=== PATIENT | female | born 1950 | race Caucasian/White ===

== ENCOUNTER → 2018-01-29 10:49 | Outpatient (CLI) | payer MEDICARE, OTHER, SELFPAY ==
--- NOTE | 2018-01-29 10:51 | US_ITS ---
STUDY: THYROID ULTRASOUND REASON FOR EXAM: Female, 68 years old. Follow up nodules TECHNIQUE: Transverse and longitudinal ultrasound evaluation of the thyroid was performed with real-time and static valenzuela-scale imaging. COMPARISON: September 13, 2016 FINDINGS: RIGHT LOBE: The right lobe of the thyroid gland measures 4.8 x 1.6 x 1.4 cm. There is a heterogeneous echotexture. There are numerous small hypoechoic and cystic masses in the right lobe of the thyroid. A cystic nodule in the midpole measures 4.2 x 3.4 x 3.9 mm. This nodule previously measured 3 mm. LEFT LOBE: The left lobe of the thyroid gland measures 4.4 x 1.4 x 1.7 cm. There is a heterogeneous echotexture. There are small hypoechoic masses in the left lobe. There is a dominant heterogeneous cystic mass in the upper pole measuring 16.2 x 7.8 x 11.2 mm. This previously measured 12.4 x 6.3 x 7.4 mm. A hyperechoic nodule in the lower pole measures 4.4 x 3.6 x 6.2 mm and previously measured 3.4 x 3.6 x 6.1 mm. ISTHMUS: The isthmus measures 3.0 mm. The regional lymph nodes are unremarkable. US/Thyroid IMPRESSION: There are cystic nodules again seen in both lobes of the thyroid. The largest is seen in the upper pole of the left lobe measuring 16 mm in largest diameter. Apparently this has been previously sampled. There are no significant new findings. Electronically Signed: Pat Townsend MD at 22:46 EDT Tel Direct: [phone], Service support ,
== END ==
PROVIDERS: Family Provider Family Medicine; PCP Family Medicine; Visit Provider Otolaryngology
DX: E04.1 Nontoxic single thyroid nodule (principal)
CPT/HCPCS: 76536

== ENCOUNTER → 2018-02-10 14:54 | Outpatient (CLI) | payer MEDICARE, OTHER, SELFPAY ==
--- NOTE | 2018-02-10 14:54 | DT_ITS ---
This patient was seen during an EMR downtime February 10, 2018 - February 17, 2018. This patient may have a combination of paper and electronic documentation or all paper documentation. All documentation is viewable within the e-chart portion of [employer] for each patient visit.
[2018-02-16 02:56] LABS: Hematocrit 40.3 % (37-47); Hemoglobin 13.1 g/dl (12.0-15.0); Mean Corp Hgb Conc 32.5 g/gl (32-36); Mean Corpuscular Hgb 28.9 pg (27.0-32.0); RBC Distribution Width CV 13.5 % (11.6-14.6); Red Blood Count 4.53 M/mm3 (4.2-5.4); White Blood Count 6.5 K/mm3 (4.4-11.0)
[2018-02-16 02:57] LABS: Absolute Lymphocyte Count 1.88 X10^3/ul (0.83-4.51); Absolute Neutrophil Count 3.8 X10^3/uL (2.0-7.7); Basophil# 0.03 X10^3/uL; Basophil% 0.5 % (0-1); Eosinophil# 0.13 X10^3/uL; Lymphocyte # 1.88 X10^3/ul (4.0); Mean Platelet Vol. 10.3 fl (6.2-12.0); Monocyte# 0.61 X10^3/uL; Monocyte% 9.4 % (0-10); Neutrophil # 3.83 X10^3/uL (2.7-7.7); Neutrophil % 58.9 % (47-70); POSITIVE COUNT NO; POSITIVE DIFFERENTIAL NO; POSITIVE MORPHOLOGY NO; Platelet Count 341 K/mm3 (150-450); RBC Distribution Width SD 43.7 fl (35.1-43.9)
[2018-02-16 03:22] LABS: BUN 13 mg/dL (7-18); Glucose 79 mg/dL (74-106)
[2018-02-16 03:23] LABS: ALB/GLOB Ratio 1.2 RATIO (0.9-2.4); AST(SGOT) 30 U/L (15-37); Alanine Aminotransfer ALT/SGPT 25 U/L (13-56); Albumin, Serum 3.8 g/dL (3.2-5.0); Alkaline Phosphatase 79 U/L (45-117); Anion Gap 9 (5-15); BUN/Creat Ratio 14.6 RATIO (10-20); Calcium,Total 8.9 mg/dL (8.5-10.1); Chloride 107 mmol/L (98-107); Cholesterol 189 mg/dL (200); Creatinine, Serum 0.89 mg/dL (0.55-1.02); EST Glomerular Filtration Rate 67 mL/min (>60); Est Glom Filt Rate - Afr Amer 81 mL/min (>60); Globulin 3.1 g/dL (2.2-4.2); High Density Lipoprotein 60 mg/dL; Protein, Total 6.9 g/dL (6.4-8.2); Sodium Level 142 mmol/L (136-145); Triglycerides 74 mg/dL; Very Low Density Lipoprotein 15 mg/dL (5-40)
[2018-02-16 19:08] LABS: T4 Free Direct 1.18 ng/dL (0.76-1.46); Thyroid Stim Hormone (TSH) 1.59 uIU/mL (0.358-3.74)
== END ==
PROVIDERS: Family Provider Family Medicine; PCP Family Medicine; Visit Provider Family Medicine
DX: I10 Essential (primary) hypertension (principal); E04.2 Nontoxic multinodular goiter; R53.83 Other fatigue; E78.4 Other hyperlipidemia
CPT/HCPCS: 36415; 80053; 80061; 84439; 84443; 84480; 85025

== ENCOUNTER → 2018-02-17 14:36 | Outpatient (CLI) | payer MEDICARE, OTHER, SELFPAY ==
--- NOTE | 2018-02-17 14:36 | DT_ITS ---
This patient was seen during an EMR downtime February 10, 2018 - February 17, 2018. This patient may have a combination of paper and electronic documentation or all paper documentation. All documentation is viewable within the e-chart portion of [employer] for each patient visit.
[2018-02-24 20:09] LABS: Lyme IgG P18 Ab Absent (.); Lyme IgG P23 Ab Absent (.); Lyme IgG P28 Ab Absent (.); Lyme IgG P30 Ab Absent (.); Lyme IgG P39 Ab Absent (.); Lyme IgG P41 Ab Present (.); Lyme IgG P45 Ab Absent (.); Lyme IgG P58 Ab Absent (.); Lyme IgG P66 Ab Absent (.); Lyme IgG P93 Ab Absent (.); Lyme IgM P23 Ab Absent (.); Lyme IgM P39 Ab Absent (.); Lyme IgM P41 Ab Absent (.)
[2018-02-25 15:52] LABS: Lyme IgG WB Interpretation Negative (.); Lyme IgM WB Interpretation Negative (.)
== END ==
PROVIDERS: Family Provider Family Medicine; PCP Family Medicine; Visit Provider Family Medicine
DX: A69.20 Lyme disease, unspecified (principal); W57.XXXA Bitten or stung by nonvenomous insect and other nonvenomous arthropods, initial encounter
CPT/HCPCS: 36415; 86617

== ENCOUNTER → 2018-03-06 14:49 | Outpatient (CLI) | payer MEDICARE, OTHER, SELFPAY ==
--- NOTE | 2018-03-06 14:52 | RAD_ITS ---
STUDY: X-RAY CHEST REASON FOR EXAM: Female, 68 years old. Cough, wheeze, shortness of breath TECHNIQUE: PA and lateral views of the chest. COMPARISON: 06/16/2014 FINDINGS: The lungs are clear and expanded. There is no demonstrated pleural abnormality. Normal size heart. Normal mediastinum and freedom. Normal visualized pulmonary arteries. There is atherosclerotic tortuosity of the aortic arch and descending thoracic aorta. There are diffuse degenerative changes of the visualized thoracic spine. Normal visualized ribs, clavicles, and shoulders. There is no demonstrated abnormality of the visualized soft tissue structures of the upper abdomen. RAD/Chest PA and Lateral IMPRESSION: Degenerative changes, as described above. No demonstrated acute cardiopulmonary process. Electronically Signed: Black Fontana DO at 15:36 EDT Tel , Service support ,
== END ==
PROVIDERS: Family Provider Family Medicine; PCP Family Medicine; Visit Provider Family Medicine
DX: R05 Cough (principal); R06.2 Wheezing
CPT/HCPCS: 71046

== ENCOUNTER → 2018-03-24 12:39 | Outpatient (CLI) | payer MEDICARE, OTHER, SELFPAY ==
--- NOTE | 2018-03-24 12:41 | BI_ITS ---
MAMMOGRAPHY - BILATERAL SCREENING REASON FOR EXAM: Female, 68 years old. Routine annual screening examination. PERTINENT HISTORY: Non-contributory. TECHNIQUE: Digital bilateral breast bri (3D mammographic acquisition) in the CC and MLO projections. 2-D mediolateral oblique (MLO) and craniocaudad (CC) views of both breasts were obtained. CAD: Full Field Digital Mammography with Computer Added Detection was performed. COMPARISON: Comparison is made with prior study dated January 25, 2017 and November 25, 2015. FINDINGS: Breast Composition: The breasts are almost entirely fatty. There are no dominant masses or suspicious calcifications. Stable benign-appearing bilateral axillary lymph nodes. No other significant abnormalities are identified. There has been no significant change since the prior study. BI/SCREENING MAMM (CAD), BILAT IMPRESSION: Stable bilateral screening mammogram. Yearly follow-up mammogram recommended. (A) ASSESSMENT CATEGORY: BIRADS Category 2: Benign. A letter regarding these results will be sent to the patient by the facility within 30 days. Approximately 10% of breast cancers are not detected by mammography. A normal mammogram should not delay biopsy of a clinically suspicious abnormality. [id number] Electronically Signed: Arian Husseni MD at 13:36 EDT Tel [phone], Service support ,
== END ==
PROVIDERS: Family Provider Family Medicine; PCP Family Medicine; Visit Provider Family Medicine
DX: Z12.31 Encounter for screening mammogram for malignant neoplasm of breast (principal)
CPT/HCPCS: 77063; 77067

== ENCOUNTER → 2018-03-31 12:04 | Outpatient (CLI) | payer MEDICARE, OTHER, SELFPAY ==
[2018-03-31 14:02] LABS: AST(SGOT) 17 U/L (15-37); Alanine Aminotransfer ALT/SGPT 27 U/L (13-56); Albumin, Serum 3.6 g/dL (3.2-5.0); Alkaline Phosphatase 75 U/L (45-117); Bilirubin, Direct 0.09 mg/dL (0.00-0.30); Cholesterol 195 mg/dL (200); Globulin 3.3 g/dL (2.2-4.2); High Density Lipoprotein 52 mg/dL; Protein, Total 6.9 g/dL (6.4-8.2); Triglycerides 71 mg/dL; Very Low Density Lipoprotein 14 mg/dL (5-40)
== END ==
PROVIDERS: Family Provider Family Medicine; PCP Family Medicine; Visit Provider Internal Medicine Cardiovascular Disease
DX: E78.5 Hyperlipidemia, unspecified (principal); R00.2 Palpitations
CPT/HCPCS: 36415; 80061; 80076

== ENCOUNTER → 2018-04-08 09:50 | Outpatient (CLI) | payer MEDICARE, OTHER, SELFPAY ==
--- NOTE | 2018-04-08 09:52 | ECHOD_ITS ---
Reason For Study: Palpitations Procedure This was a 2D Doppler, Color Flow transthoracic echocardiogram. Exam performed in department. Left Ventricle Normal size and thickness. The estimated ejection fraction is 65 %. Normal diastology for age. No regional wall motion abnormalities noted. Right Ventricle Mildly dilated right ventricle. Normal systolic function. Atria Normal left atrium. The right atrium is mildly enlarged. Normal atrial septum. Mitral Valve The mitral valve is structurally normal. No prolapse or stenosis seen. Tricuspid Valve Normal tricuspid valve. Trivial tricuspid valve insufficiency. Right ventricular systolic pressure estimated to be 34 mmHg. Aortic Valve Trisinus/trileaflet aortic valve. Mild diffuse aortic valve thickening. Mild (1+) aortic valve insufficiency. Pulmonic Valve Normal pulmonic valve. Great Vessels Normal aortic root. Normal arch. Normal inferior vena cava. Inferior vena cava collapse with sniff. Pericardium/Pleural No pericardial effusion. MMode/2D Measurements & Calculations LVIDd: 4.2 cm IVSd: 1.0 cm LVOT diam: 2.0 cm LVIDs: 2.2 cm LVPWd: 1.1 cm LVOT area: 3.0 cm2 RVDd: 4.2 cm FS: 47.4 % Ao root diam: 3.3 cm LAV(MOD-bp): 48.3 ml LA A4 area: 12.8 cm2 LA dimension: 4.1 cm LAV(MOD-bp) Indexed: 23.2 ml/m2 LAV(MOD-sp2): 81.1 ml LAV(MOD-sp4): 26.7 ml RA A4 area: 21.4 cm2 Time Measurements MV dec time: 0.18 sec Doppler Measurements & Calculations MV E max victor manuel: 69.7 cm/sec Lat Peak E' Victor Manuel: 9.8 cm/sec Med Peak E' Victor Manuel: 5.9 cm/sec MV A max victor manuel: 76.7 cm/sec E/E' lat: 7.1 E/E' med: 11.7 MV E/A: 0.91 MV V2 max: 92.7 cm/sec MV P1/2t max victor manuel: 79.8 cm/sec Ao V2 max: 115.2 cm/sec MV max P.4 mmHg MV P1/2t: 66.1 msec Ao max P.3 mmHg MV V2 mean: 42.4 cm/sec MV dec slope: 353.6 cm/sec2 Ao V2 mean: 68.8 cm/sec MV mean P.89 mmHg MVA(P1/2t): 3.3 cm2 Ao mean P.2 mmHg MV V2 VTI: 26.8 cm Ao V2 VTI: 25.3 cm MVA(VTI): 2.2 cm2 JASMYNE(I,D): 2.3 cm2 JASMYNE(V,D): 2.3 cm2 AI max victor manuel: 406.9 cm/sec LV V1 max: 88.3 cm/sec SV(LVOT): 59.4 ml AI max P.2 mmHg LV V1 max P.1 mmHg AI dec slope: 201.6 cm/sec2 LV V1 mean P.2 mmHg AI P1/2t: 591.2 msec LV V1 mean: 49.5 cm/sec LV V1 VTI: 19.8 cm PA V2 max: 110.7 cm/sec Interpretation Summary The estimated ejection fraction is 65 %. Normal diastology for age. Mildly dilated right ventricle. The right atrium is mildly enlarged. Trivial tricuspid valve insufficiency. Right ventricular systolic pressure estimated to be 34 mmHg. Mild (1+) aortic valve insufficiency. There is no comparison study available. Ordering Physician: Jefferson Chen Referring Physician: Jefferson Chen Performed By: Abdoul Rankin RCS
== END ==
PROVIDERS: Family Provider Family Medicine; PCP Family Medicine; Visit Provider Internal Medicine Cardiovascular Disease
DX: R06.09 Other forms of dyspnea (principal)
CPT/HCPCS: 93306

== ENCOUNTER → 2018-04-10 09:30 | Outpatient (CLI) | payer MEDICARE, OTHER, SELFPAY ==
--- NOTE | 2018-04-10 09:32 | STE_ITS ---
Reason For Study: Palpitations, SOB Stress Results Protocol: Oumar Protocol Maximum Predicted HR: 152 bpm Target HR: 129 bpm% Max imum Predicted HR: 79 % DurationHeart Rate Stage (mm:ss) (bpm) BPCom ment Baseline 64 140/82 No Chest Pain Oumar Protocol Stage I 3:00 11 1 154/80No Chest Pain; Mild Dyspnea Oumar Protocol Stage II 1:01 12 0 / No Chest Pain; Moderate Dyspnea Recovery 93 132/88 No Chest Pain; No Dyspnea Stress Duration: 4:01 mm:ss Maximum Stress HR: 120 bpmM ETS: 7 Baseline Echocardiogram Findings The estimated ejection fraction is 65 %. Stress Echo Wall motion Data Resting WMIntermediate WMStress WM Resting Wall Motion Wall Motion Stress No regional wall motion No regional wall motion abnormalities noted. abnormalities noted. EKG Data The baseline ECG demonstrates normal sinus rhythm with at rate of _ beats per minute. The patient exercised according to the regular Oumar protocol for a total duration of 4:01. The maximum heart rate attained was 123 beats per minute. This was 80% of maximum predicted heart rate. The patient exercised into stage 2 of the Oumar protocol. During stress, there were no ST or T wave changes noted to suggest ischemia. No clinical angina was noted. No arrhythmias noted. Interpretation Summary The estimated ejection fraction is 65 %. Normal, submaximal treadmill echocardiogram. Negative for ischemia by EKG and echocardiographic criteria. Below average exercise capacity for age. No anginal symptoms noted. No arrhythmias noted. Appropriate blood pressure response to exercise. Final LVEF is 75%. Although patient did not reach target heart rate, her rate pressure product was adequate to evaluate for ischemia. Ordering Physician: Jefferson Chen Referring Physician: Jefferson Chen Performed By: Marcella Walker RDCS
== END ==
PROVIDERS: Family Provider Family Medicine; PCP Family Medicine; Visit Provider Internal Medicine Cardiovascular Disease
DX: R00.2 Palpitations (principal)
CPT/HCPCS: 93017; 93350

== ENCOUNTER → 2018-10-15 13:38 | Outpatient (CLI) | payer MEDICARE, OTHER, SELFPAY ==
[2018-10-10 11:27] VITALS: BMI 32.5
--- NOTE | 2018-10-15 13:44 | RAD_ITS ---
HISTORY: LOW BACK PAIN. NO INJURY COMPARISON: None FINDINGS: XR Spine Lumbar 4 Views: Generalized bony demineralization consistent with the patient's age. Lower thoracic and upper lumbar mild levoscoliosis which measures 12 with the apex of the curve at the T12 level. Lumbar vertebra are normal in height. No fracture or acute osseous abnormality. Anterolateral endplate spurring of the lower dorsal and upper lumbar spine. [id number] disc space narrowing. L4-5 and L5-S1 facet joint arthritis with mild anterolisthesis of L4 on L5. The SI joints appear preserved. RAD/L/S Spine Min 4 Views IMPRESSION: 1. No fracture or acute osseous abnormality. 2. Mild scoliosis with multilevel mild degenerative changes. 3. Lower lumbar facet joint arthritis with grade 1 anterolisthesis of L4 on L5. at [id number] Reported and signed by: Tashi Segura MD Electronically Signed: Tashi Segura, at 3:53 EST Tel , Service support ,
== END ==
PROVIDERS: Family Provider Family Medicine; PCP Family Medicine; Referring Provider Family Medicine; Visit Provider Family Medicine
DX: M54.5 Low back pain (principal)
CPT/HCPCS: 72110

== ENCOUNTER → 2018-12-08 12:45 | Outpatient (CLI) | payer MEDICARE, OTHER, SELFPAY ==
[2018-10-10 11:27] VITALS: BMI 32.5
--- NOTE | 2018-12-08 12:51 | MRI_ITS ---
STUDY: MRI LUMBAR SPINE WITHOUT CONTRAST REASON FOR EXAM: Female, 68 years old. Radiculopathy. TECHNIQUE: Standardized fat and water weighted pulse sequences were obtained in the sagittal and axial planes. COMPARISON: October 15, 2018. FINDINGS: Exaggerated lumbar lordosis. Mild levoscoliosis. Conus medullaris terminates normally at the L1-2 level. T12-L1: Mild endplate spondylosis with degenerative/reactive edema. Disc bulge without central canal narrowing. Normal bilateral facet joints. Normal central canal and bilateral lateral recesses. Normal bilateral intervertebral neural foramina. L1-2: Mild endplate spondylosis with degenerative/reactive edema. Disc bulge/uncovering without central canal narrowing. Normal bilateral facet joints. Normal central canal and bilateral lateral recesses. Bilateral neuroforaminal narrowing without impingement. Grade 1 spondylolisthesis. L2-3: Normal endplates. Shallow disc bulge/uncovering without central canal narrowing. Normal bilateral facet joints. Normal central canal and bilateral lateral recesses. Bilateral neural foraminal narrowing without impingement. Grade 1 spondylolisthesis. L3-4: Normal endplates. Disc bulge without central canal narrowing. Facet joint arthrosis. Normal central canal and bilateral lateral recesses. Bilateral neural foraminal narrowing without impingement. L4-5: Normal endplates. Disc bulge/uncovering without central canal narrowing. Severe facet joint arthrosis. Normal central canal and bilateral lateral recesses. Normal bilateral intervertebral neural foramina. Grade 1 spondylolisthesis. L5-S1: Mild endplate spondylosis. Disc bulge without central canal narrowing. Severe facet joint arthrosis. Normal central canal and bilateral lateral recesses. Bilateral neural foraminal narrowing with impingement on the left. Sacrum intact. Sacral Tarlov cyst. Paraspinal muscle atrophy. Normal aorta. Normal retroperitoneum. MRI/Spine Lumbar (Routine) IMPRESSION: Multilevel intervertebral disc disease without significant central canal narrowing Multilevel neural foraminal narrowing with impingement of the left exiting L5 nerve root Multilevel osseous degenerative changes with multilevel grade 1 spondylolisthesis Exaggerated lumbar lordosis with mild levoscoliosis Electronically Signed: Vitaly Anderson DO at 8:45 EDT Tel , Service support ,
== END ==
PROVIDERS: Family Provider Family Medicine; PCP Family Medicine; Referring Provider Family Medicine; Visit Provider Family Medicine
DX: M54.17 Radiculopathy, lumbosacral region (principal)
CPT/HCPCS: 72148

== ENCOUNTER 2019-01-19 13:00 | Outpatient (RCR) | payer MEDICARE, OTHER, SELFPAY ==
[2018-10-10 11:27] VITALS: BMI 32.5
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
--- NOTE | 2019-01-27 14:46 | HP.PTDCNRP_ITS ---
HP - Discharge Summary (1) - Patient Information BRYAN DESOUZA was seen in my office for initial evaluation on 01/12/19. The following Plan of Care was established for this patient: Initial Frequency: 2-3x /Week Initial Duration: 4-6 Weeks - Anticipated Interventions Patient/Client Instruction: Educate patient on: Condition, Plan of Care, Risk Factors, Benefits of Fitness Program For the Purpose of:: To improve self management Therapeutic Exercise to Include: Strength training, Body mechanics, Postural training, Flexibilty training, In an aquatic setting, Dynamic Lumbar Stabilization For the Purpose of:: To decrease pain, To improve muscle performance and motor function, To increase tolerance to activity/condition/position, To improve ability of physical actions for home/community/work/leisure This patient was last seen in our office . Pertinent comments regarding their Physical therapy will appear below: I RECEIVED A NOTE STATING PATIENT CALLED AND CANCELLED ALL REMAINING DI'TS DUE TO BEING OUT OF STATE AND HER BUSY SCHEDULE AND THAT SHE WILL CALL BACK TO RE- SCHEDULE WHEN ABLE. At this point I will be discontinuing this patient from physical therapy. I would be happy to see this patient again in the future if found appropriate by the physician. Thank you! Sharonda Ordoñez, PT, Cert MDT
== END 2019-01-19 19:00 | disposition home or self-care (01) ==
LOC: PT 13:00
PROVIDERS: Family Provider Family Medicine; PCP Family Medicine; Referring Provider Family Medicine; Visit Provider Family Medicine
DX: M51.26 Other intervertebral disc displacement, lumbar region (principal); M46.96 Unspecified inflammatory spondylopathy, lumbar region
CPT/HCPCS: 97162; 97530

== ENCOUNTER → 2019-02-18 | Outpatient (CLI) | payer MEDICARE, OTHER, SELFPAY ==
[2018-10-10 11:27] VITALS: BMI 32.5
--- NOTE | 2019-02-18 12:51 | US_ITS ---
STUDY: THYROID ULTRASOUND REASON FOR EXAM: Female, 69 years old. Follow-up of nodules TECHNIQUE: Ultrasound evaluation of the thyroid was performed with real-time and static valenzuela-scale imaging. COMPARISON: 01/29/2018 FINDINGS: RIGHT LOBE: The right lobe of the thyroid gland measures 5.2 x 1.5 x 1.8 cm. There is a heterogeneous echotexture. Multiple nodules are seen most of which are complex and hypoechoic and not clearly cystic. None of these however is larger than 6 mm. LEFT LOBE: The left lobe of the thyroid gland measures 4.0 x 1.8 x 1.8 cm. There is a heterogeneous echotexture. Multiple nodules are seen most of which are complex and hypoechoic and not clearly cystic. The largest, which is complex but probably solid measures 1.7 cm greatest dimension and is relatively similar to prior exam. ISTHMUS: The isthmus measures 3 mm . . The regional lymph nodes are normal. US/Thyroid IMPRESSION: Probable mild multinodular goiter with a dominant 1.7 cm nodule of the left thyroid lobe that is grossly stable. Recommend continued annual follow-up. Electronically Signed: Dave Chase MD at 17:56 EDT , Service support ,
== END | disposition home or self-care (01) ==
LOC: US 12:50
PROVIDERS: Family Provider Family Medicine; PCP Family Medicine; Referring Provider Family Medicine; Visit Provider Family Medicine
DX: E04.2 Nontoxic multinodular goiter (principal); R59.0 Localized enlarged lymph nodes
CPT/HCPCS: 76536

== ENCOUNTER → 2019-05-08 | Outpatient (CLI) | payer MEDICARE, OTHER, SELFPAY ==
[2018-10-10 11:27] VITALS: BMI 32.5
--- NOTE | 2019-05-08 10:56 | ECHOD_ITS ---
Reason For Study: AI Procedure This was a 2D Doppler, Color Flow transthoracic echocardiogram. Exam performed in department. Left Ventricle Normal size and thickness. The estimated ejection fraction is 65 %. Stage 1 diastolic dysfunction. No regional wall motion abnormalities noted. Right Ventricle Mildly dilated right ventricle. Normal systolic function. Atria Normal left atrium. Normal right atrium. Normal atrial septum. Mitral Valve The mitral valve is structurally normal. No prolapse or stenosis seen. Trivial mitral valve insufficiency. Tricuspid Valve Normal tricuspid valve. Mild (1+) tricuspid valve insufficiency. Right ventricular systolic pressure estimated to be 38 mmHg. Mild pulmonary hypertension. Aortic Valve Trisinus/trileaflet aortic valve. Mild (1+) aortic valve insufficiency. Pulmonic Valve Normal pulmonic valve. Great Vessels Mildly dilated aortic root. Normal arch. Normal inferior vena cava. Inferior vena cava collapse with sniff. Pericardium/Pleural No pericardial effusion. MMode/2D Measurements & Calculations LVIDd: 3.9 cm IVSd: 1.1 cm Ao root diam: 3.9 cm LVIDs: 2.4 cm LVPWd: 1.0 cm RVDd: 4.4 cm FS: 38.1 % LAV(MOD-bp): 62.8 ml LVAd ap4: 29.7 cm2 SV(MOD-sp4): 55.3 ml LAV(MOD-bp) Indexed: 32.2 ml/m2 EDV(MOD-sp4): 91.3 ml LAV(MOD-sp2): 57.3 ml EDV(sp4-el): 94.1 ml LAV(MOD-sp4): 65.4 ml LVAs ap4: 16.4 cm2 ESV(MOD-sp4): 36.0 ml ESV(sp4-el): 35.6 ml EF(MOD-sp4): 60.6 % EF(sp4-el): 62.2 % SV(sp4-el): 58.5 ml LA A4 area: 22.4 cm2 LA dimension(2D): 4.4 cm RA A4 area: 21.3 cm2 Doppler Measurements & Calculations MV E max victor manuel: 84.2 cm/sec Lat Peak E' Victor Manuel: 8.5 cm/sec Med Peak E' Victor Manuel: 4.8 cm/sec MV A max victor manuel: 76.6 cm/sec E/E' lat: 10.0 E/E' med: 17.6 MV E/A: 1.1 Ao V2 max: 170.0 cm/sec AI max victor manuel: 396.1 cm/sec LV V1 max: 115.9 cm/sec Ao max P.6 mmHg AI max P.8 mmHg LV V1 max P.4 mmHg Ao V2 mean: 102.6 cm/sec Ao mean P.8 mmHg AI dec slope: 165.5 cm/sec2 Ao V2 VTI: 36.4 cm AI P1/2t: 701.0 msec PA V2 max: 96.3 cm/sec TR max victor manuel: 285.2 cm/sec TR max P.5 mmHg Interpretation Summary The estimated ejection fraction is 65 %. Stage 1 diastolic dysfunction. Mildly dilated right ventricle. Trivial mitral valve insufficiency. Mild (1+) tricuspid valve insufficiency. Right ventricular systolic pressure estimated to be 38 mmHg. Mild pulmonary hypertension. Mild (1+) aortic valve insufficiency. Mildly dilated aortic root. Compared to echo report dated 04/08/2018, LV function has remained the same, RVSP has increased from 34 to 38 mm Hg. Aortic root has gone from 3.3 to 3.9 cm. Recommend repeat echo in 6 months. Ordering Physician: Jefferson Chen Referring Physician: Eleonora Edgar Performed By: Kaye Red, SAMMY, RVT
== END | disposition home or self-care (01) ==
LOC: CVS 10:55
PROVIDERS: Family Provider Family Medicine; PCP Family Medicine; Referring Provider Internal Medicine Cardiovascular Disease; Visit Provider Internal Medicine Cardiovascular Disease
DX: I35.1 Nonrheumatic aortic (valve) insufficiency (principal)
CPT/HCPCS: 93306

== ENCOUNTER → 2019-09-11 12:30 | Outpatient (CLI) | payer MEDICARE, OTHER, SELFPAY ==
[2019-07-03 13:53] VITALS: BMI 32.5
--- NOTE | 2019-09-11 13:00 | MRI_ITS ---
STUDY: MRI LEFT KNEE REASON FOR EXAM: Female, 69 years old. The patient presents with a history of anteromedial knee pain with difficulty walking. TECHNIQUE: Standardized fat and water weighted pulse sequences were obtained in all 3 orthogonal planes. COMPARISON: None. FINDINGS: Normal medial meniscus. There is diffuse, greater than 50% thickness articular cartilage loss of the medial femorotibial compartment. Normal medial femoral condyle and tibial plateau. There is ligamentous thickening of the MCL consistent with a remote MCL sprain. There is tendinosis of the semi-membranous tendon (axial T2 series 2, image 22). Normal gracilis and semitendinosus. There is extensive intrasubstance degeneration of the anterior horn of the lateral meniscus with a intrasubstance horizontal tear that extends to the inferior meniscal surface (sagittal T2 series 4, images 17-19). The tear extends to the anterior aspect of the body the medial meniscus. The anterior and posterior meniscal roots remain intact. There is diffuse, greater than 50% thickness articular cartilage loss of the lateral femorotibial compartment. Normal lateral femoral condyle and tibial plateau. Normal proximal tibiofibular articulation. Normal lateral collateral (fibular) ligament. Normal popliteus tendon. Normal biceps femoris tendon. Normal anterior cruciate ligament (ACL). Normal posterior cruciate ligament (PCL). Normal congruent patellofemoral articulation. There is thinning of the hyaline cartilage of the lateral patella facet with subchondral plate bone marrow edema (axial T2 series 2, image 12; sagittal T2 series 4, image 14). Normal medial and lateral patellar retinaculum. Normal quadriceps tendon. Normal patellar tendon. Normal Hoffa''s fat pad. There is a small volume joint effusion. There is edema of subcutaneous adipose space in a prepatellar tendon location. The otherwise visualized osseous structures are unremarkable. MRI/Lower Ext Joint Only (Routine) IMPRESSION: 1. 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 2. Greater than 50% chondral loss of the hyaline cartilage of the medial and lateral knee compartments. 3. Tendinosis of the semimembranosus tendon. 4. Thinning of the hyaline cartilage of the lateral patella facet with subchondral endplate bone marrow edema. 5. Small volume joint effusion. 6. Edema of subcutaneous adipose space in a prepatellar tendon location. Electronically Signed: Brad Urrutia DO at 14:12 EST Tel , Service support ,
== END ==
PROVIDERS: Family Provider Family Medicine; PCP Family Medicine; Referring Provider Family Medicine; Visit Provider Family Medicine
DX: M25.562 Pain in left knee (principal); S89.92XA Unspecified injury of left lower leg, initial encounter
CPT/HCPCS: 73721

== ENCOUNTER → 2019-09-16 13:51 | Outpatient (CLI) | payer MEDICARE, OTHER, SELFPAY ==
[2019-07-03 13:53] VITALS: BMI 32.5
[2019-09-16 15:37] LABS: Absolute Lymphocyte Count 1.54 X10^3/uL (0.83-4.51); Absolute Neutrophil Count 4.1 X10^3/uL (2.0-7.7); Basophil# 0.03 X10^3/uL; Basophil% 0.5 % (0-1); Eosinophil# 0.15 X10^3/uL; Eosinophils% 2.3 % (0-5); Hematocrit 39.3 % (37-47); Lymphocyte # 1.54 X10^3/ul (4.0); Lymphocyte % 23.9 % (19-41); Mean Corp Hgb Conc 33.1 g/dL (32-36); Mean Corpuscular Volume 87.5 fL (81-99); Mean Platelet Vol. 9.7 fl (6.2-12.0); Monocyte# 0.63 X10^3/uL; Monocyte% 9.8 % (0-10); NRBC Flagged by Analyzer 0 % (0-5); Neutrophil # 4.08 X10^3/uL (2.7-7.7); Neutrophil % 63.2 % (47-70); Platelet Count 335 K/mm3 (150-450); RBC Distribution Width CV 13.1 % (11.6-14.6); RBC Distribution Width SD 41.8 fl (35.1-43.9); Red Blood Count 4.49 M/mm3 (4.2-5.4); White Blood Count 6.5 K/mm3 (4.4-11.0)
[2019-09-16 15:58] LABS: AST(SGOT) 20 U/L (15-37); Alanine Aminotransfer ALT/SGPT 27 U/L (13-56); Albumin, Serum 3.5 g/dL (3.2-5.0); Alkaline Phosphatase 81 U/L (45-117); Anion Gap 7 (5-15); BUN 16 mg/dL (7-18); BUN/Creat Ratio 20.6 RATIO (10-20); Calcium,Total 8.6 mg/dL (8.5-10.1); Chloride 105 mmol/L (98-107); Cholesterol 194 mg/dL (200); Creatinine, Serum 0.78 mg/dL (0.55-1.02); EST Glomerular Filtration Rate 78 mL/min (>60); Est Glom Filt Rate - Afr Amer 95 mL/min (>60); Globulin 3.5 g/dL (2.2-4.2); Glucose 91 mg/dL (74-106); High Density Lipoprotein 72 mg/dL; Sodium Level 139 mmol/L (136-145); T4 Free Direct 1.07 ng/dL (0.76-1.46); Thyroid Stim Hormone (TSH) 1.46 uIU/mL (0.358-3.74); Triglycerides 55 mg/dL; Very Low Density Lipoprotein 11 mg/dL (5-40)
== END ==
PROVIDERS: Family Provider Family Medicine; PCP Family Medicine; Referring Provider Family Medicine; Visit Provider Family Medicine
DX: E04.2 Nontoxic multinodular goiter (principal); I10 Essential (primary) hypertension; R53.83 Other fatigue; Z51.81 Encounter for therapeutic drug level monitoring
CPT/HCPCS: 36415; 80053; 80061; 84439; 84443; 85025

== ENCOUNTER → 2019-11-11 12:57 | Outpatient (CLI) | payer MEDICARE, OTHER, SELFPAY ==
[2019-07-03 13:53] VITALS: BMI 32.5
--- NOTE | 2019-11-11 12:58 | ECHOD_ITS ---
Reason For Study: PHTN, DILATED AO ROOT Procedure This was a 2D Doppler, Color Flow transthoracic echocardiogram. Exam performed in department. Left Ventricle Normal size and thickness. The estimated ejection fraction is 65 %. Stage 1 diastolic dysfunction. No regional wall motion abnormalities noted. Right Ventricle Normal size and thickness. Normal systolic function. Atria Normal left atrium. Normal right atrium. Normal atrial septum. Mitral Valve The mitral valve is structurally normal. No prolapse or stenosis seen. Tricuspid Valve Normal tricuspid valve. Trivial tricuspid valve insufficiency. Right ventricular systolic pressure estimated to be 30 mmHg. Aortic Valve Trisinus/trileaflet aortic valve. Mild diffuse aortic valve thickening. Mild (1+) aortic valve insufficiency. Pulmonic Valve Normal pulmonic valve. Trivial pulmonic valve insufficiency. Great Vessels Mildly dilated aortic root. Normal arch. Normal inferior vena cava. Inferior vena cava collapse with sniff. Pericardium/Pleural No pericardial effusion. MMode/2D Measurements & Calculations LVIDd: 4.4 cm IVSd: 1.0 cm LVOT diam: 2.0 cm LVIDs: 2.9 cm LVPWd: 0.97 cm LVOT area: 3.1 cm2 RVDd: 3.6 cm FS: 33.4 % Ao root diam: 4.4 cm LAV(MOD-bp): 63.7 ml LVAd ap4: 28.7 cm2 LAV(MOD-bp) Indexed: 31.9 ml/m2 EDV(MOD-sp4): 86.1 ml LAV(MOD-sp2): 43.0 ml EDV(sp4-el): 90.1 ml LAV(MOD-sp4): 82.9 ml LVAs ap4: 15.4 cm2 ESV(MOD-sp4): 29.5 ml ESV(sp4-el): 30.2 ml EF(MOD-sp4): 65.8 % EF(sp4-el): 66.5 % SV(MOD-sp4): 56.6 ml SV(sp4-el): 59.9 ml Aortic Valve Planimetry: 2.3 cm2 LA A4 area: 24.6 cm2 LA dimension(2D): 4.4 cm RA A4 area: 13.3 cm2 Time Measurements MV dec time: 0.21 sec Doppler Measurements & Calculations MV E max victor manuel: 57.4 cm/sec Lat Peak E' Victor Manuel: 7.8 cm/sec Med Peak E' Victor Manuel: 4.3 cm/sec MV A max victor manuel: 82.4 cm/sec E/E' lat: 7.4 E/E' med: 13.3 MV E/A: 0.70 Ao V2 max: 149.8 cm/sec AI max victor manuel: 374.8 cm/sec LV V1 max: 108.0 cm/sec Ao max P.0 mmHg AI max P.2 mmHg LV V1 max P.7 mmHg Ao V2 mean: 104.5 cm/sec LV V1 mean P.5 mmHg Ao mean P.8 mmHg AI dec slope: 140.8 cm/sec2 LV V1 mean: 73.4 cm/sec Ao V2 VTI: 32.7 cm AI P1/2t: 779.9 msec LV V1 VTI: 22.7 cm JASMYNE(I,D): 2.2 cm2 JASMYNE(V,D): 2.3 cm2 SV(LVOT): 71.2 ml PA V2 max: 100.7 cm/sec TR max victor manuel: 251.1 cm/sec TR max P.2 mmHg Interpretation Summary The estimated ejection fraction is 65 %. Stage 1 diastolic dysfunction. Trivial tricuspid valve insufficiency. Right ventricular systolic pressure estimated to be 30 mmHg. Mild (1+) aortic valve insufficiency. Compared to echo report dated 05/08/19, no appreciable changes noted. Ordering Physician: Jefferson Chen Referring Physician: EDELMIRA JACINTO Performed By: Roseline Henao, CARLOSCS, RVT
== END ==
PROVIDERS: PCP Family Medicine; Referring Provider Internal Medicine Cardiovascular Disease; Visit Provider Internal Medicine Cardiovascular Disease
DX: I35.1 Nonrheumatic aortic (valve) insufficiency (principal); I77.810 Thoracic aortic ectasia; I27.20 Pulmonary hypertension, unspecified
CPT/HCPCS: 93306

== ENCOUNTER → 2019-12-14 12:52 | Outpatient (CLI) | payer MEDICARE, OTHER, SELFPAY ==
[2019-12-10 13:06] VITALS: BMI 33.0
--- NOTE | 2019-12-14 12:53 | CT_ITS ---
STUDY: CTA CHEST REASON FOR EXAM: Female, 69 years old. Aortic root dilatation, thoracic aortic ectasia, follow up and quot;leaky and quot; aortic valve, some SOB on exertion. Hx hypertension. RADIATION DOSAGE (If Supplied By Facility): CTDIvol = ( 14.53 ) mGy, DLP = ( 596.71 ) mGycm TECHNIQUE: The examination was performed with the intravenous administration of 100mL Isovue 370. Post-processing of the angiographic images was performed, with multiplanar reformation and 3D reconstruction. Individualized dose optimization techniques were used for this CT. COMPARISON: None. FINDINGS: 1 cm x 0.8 cm hypodense nodule in the lower aspect of the left lobe of the thyroid. Small benign-appearing bilateral axillary lymph nodes. Normal enhancement of the main pulmonary artery and right and left pulmonary arteries. Normal enhancement of the bilateral peripheral pulmonary arteries. There is no demonstrated pulmonary embolism. There is aneurysmal dilatation of the ascending aorta. The transverse diameter of the ascending aorta measures 42.8 mm''s. There is no demonstrated aortic dissection. Normal heart and pericardium. Normal mediastinum. Normal hilar regions. Normal visualized trachea and bronchi. The lungs are well expanded. Minimal increased markings in the lingular segment of the left upper lobe suggestive of scarring and/or atelectasis. Normal pleura. Normal chest wall structures. There are degenerative changes of thoracic spine. Small hiatal hernia. CT/CTA Chest W/WO Contrast IMPRESSION: Mild dilatation of the ascending thoracic aorta with a transverse dimension of 42.8 mm. Electronically Signed: Arian Hussein, at 14:34 EDT , Service support ,
== END ==
PROVIDERS: PCP Family Medicine; Referring Provider Internal Medicine Cardiovascular Disease; Visit Provider Internal Medicine Cardiovascular Disease
DX: I77.810 Thoracic aortic ectasia (principal); R03.0 Elevated blood-pressure reading, without diagnosis of hypertension
CPT/HCPCS: 71275; 93788; Q9967; A4216

== ENCOUNTER → 2020-02-15 | Outpatient (CLI) | payer MEDICARE, OTHER, SELFPAY ==
[2019-12-10 13:06] VITALS: BMI 33.0
[2020-02-15 17:46] LABS: Absolute Lymphocyte Count 1.61 X10^3/uL (0.83-4.51); Absolute Neutrophil Count 5.5 X10^3/uL (2.0-7.7); Basophil# 0.04 X10^3/uL; Basophil% 0.5 % (0-1); Eosinophil# 0.08 X10^3/uL; Hematocrit 39.7 % (37-47); Hemoglobin 12.8 g/dL (12.0-15.0); Lymphocyte # 1.61 X10^3/ul (4.0); Lymphocyte % 20.4 % (19-41); Mean Corp Hgb Conc 32.2 g/dL (32-36); Mean Corpuscular Hgb 29.2 pg (27.0-32.0); Mean Corpuscular Volume 90.4 fL (81-99); Mean Platelet Vol. 10.1 fl (6.2-12.0); Monocyte# 0.64 X10^3/uL; Monocyte% 8.1 % (0-10); NRBC Flagged by Analyzer 0 % (0-5); Neutrophil # 5.49 X10^3/uL (2.7-7.7); Neutrophil % 69.7 % (47-70); Platelet Count 355 K/mm3 (150-450); RBC Distribution Width CV 13.4 % (11.6-14.6); Red Blood Count 4.39 M/mm3 (4.2-5.4); White Blood Count 7.9 K/mm3 (4.4-11.0)
[2020-02-15 18:00] LABS: ALB/GLOB Ratio 1.3 RATIO (0.9-2.4); AST(SGOT) 20 U/L (15-37); Alanine Aminotransfer ALT/SGPT 28 U/L (13-56); Albumin, Serum 3.9 g/dL (3.2-5.0); Alkaline Phosphatase 79 U/L (45-117); Anion Gap 11 (5-15); BUN 24 mg/dL (7-18); BUN/Creat Ratio 21.8 RATIO (10-20); Calcium,Total 9.2 mg/dL (8.5-10.1); Chloride 103 mmol/L (98-107); Cholesterol 183 mg/dL (200); EST Glomerular Filtration Rate 52 mL/min (>60); Est Glom Filt Rate - Afr Amer 63 mL/min (>60); Globulin 3.1 g/dL (2.2-4.2); Glucose 94 mg/dL (74-106); High Density Lipoprotein 54 mg/dL; Potassium 3.8 mmol/L (3.5-5.1); Sodium Level 138 mmol/L (136-145); T4 Free Direct 1.08 ng/dL (0.76-1.46); Thyroid Stim Hormone (TSH) 1.02 uIU/mL (0.358-3.74); Triglycerides 75 mg/dL; Very Low Density Lipoprotein 15 mg/dL (5-40)
== END | disposition home or self-care (01) ==
LOC: MTLAB 15:21
PROVIDERS: PCP Family Medicine; Referring Provider Family Medicine; Visit Provider Family Medicine
DX: E04.2 Nontoxic multinodular goiter (principal); I10 Essential (primary) hypertension; R53.83 Other fatigue; Z51.81 Encounter for therapeutic drug level monitoring
CPT/HCPCS: 36415; 80053; 80061; 84439; 84443; 85025

== ENCOUNTER → 2020-03-02 13:39 | Outpatient (CLI) | payer MEDICARE, OTHER, SELFPAY ==
[2019-12-10 13:06] VITALS: BMI 33.0
[2020-03-02 16:26] LABS: Vitamin B12 310 pg/mL (211-911); Vitamin D,25 Hydroxy 23.7 ng/mL
[2020-03-02 16:38] LABS: Anion Gap 8 (5-15); BUN 11 mg/dL (7-18); BUN/Creat Ratio 12.4 RATIO (10-20); Calcium,Total 9.2 mg/dL (8.5-10.1); Chloride 102 mmol/L (98-107); Creatinine, Serum 0.89 mg/dL (0.55-1.02); EST Glomerular Filtration Rate 67 mL/min (>60); Est Glom Filt Rate - Afr Amer 81 mL/min (>60); Glucose 94 mg/dL (74-106); Potassium 3.6 mmol/L (3.5-5.1); Sodium Level 138 mmol/L (136-145)
== END ==
PROVIDERS: PCP Family Medicine; Referring Provider Family Medicine; Visit Provider Family Medicine
DX: R53.83 Other fatigue (principal); N28.9 Disorder of kidney and ureter, unspecified; E55.9 Vitamin D deficiency, unspecified; Z51.81 Encounter for therapeutic drug level monitoring
CPT/HCPCS: 36415; 80048; 82306; 82607

== ENCOUNTER → 2020-09-05 17:21 | Outpatient (CLI) | payer MEDICARE, OTHER, SELFPAY ==
[2020-07-29 10:42] VITALS: BMI 34.3
== END ==
PROVIDERS: PCP Family Medicine; Referring Provider Family Medicine; Visit Provider Family Medicine
DX: Z20.828 Contact with and (suspected) exposure to other viral communicable diseases (principal)
CPT/HCPCS: 87635; C9803; U0003

== ENCOUNTER → 2021-02-16 14:44 | Outpatient (CLI) | payer MEDICARE, OTHER, SELFPAY ==
[2020-07-29 10:42] VITALS: BMI 34.3
[2021-02-16 17:33] LABS: Absolute Neutrophil Count 5.1 X10^3/uL (2.0-7.7); Basophil# 0.04 X10^3/uL; Basophil% 0.5 % (0-1); Eosinophil# 0.11 X10^3/uL; Eosinophils% 1.5 % (0-5); Hematocrit 40.1 % (37-47); Lymphocyte % 21.5 % (19-41); Mean Corp Hgb Conc 32.4 g/dL (32-36); Mean Corpuscular Hgb 28.2 pg (27.0-32.0); Mean Platelet Vol. 10.1 fl (6.2-12.0); Monocyte# 0.59 X10^3/uL; Monocyte% 7.9 % (0-10); NRBC Flagged by Analyzer 0 % (0-5); Neutrophil # 5.07 X10^3/uL (2.7-7.7); Neutrophil % 68.3 % (47-70); Platelet Count 345 K/mm3 (150-450); RBC Distribution Width CV 14.5 % (11.6-14.6); RBC Distribution Width SD 46.3 fl (35.1-43.9); Red Blood Count 4.61 M/mm3 (4.2-5.4); White Blood Count 7.4 K/mm3 (4.4-11.0)
[2021-02-16 17:52] LABS: Vitamin B12 756 pg/mL (211-911); Vitamin D,25 Hydroxy 22.9 ng/mL
[2021-02-16 18:05] LABS: ALB/GLOB Ratio 1.1 RATIO (0.9-2.4); AST(SGOT) 14 U/L (15-37); Alanine Aminotransfer ALT/SGPT 25 U/L (13-56); Albumin, Serum 3.6 g/dL (3.2-5.0); Alkaline Phosphatase 102 U/L (45-117); Anion Gap 7 (5-15); BUN 12 mg/dL (7-18); BUN/Creat Ratio 15.9 RATIO (10-20); Calcium,Total 8.7 mg/dL (8.5-10.1); Chloride 106 mmol/L (98-107); Cholesterol 189 mg/dL (200); Creatinine, Serum 0.76 mg/dL (0.55-1.02); EST Glomerular Filtration Rate 80 mL/min (>60); Est Glom Filt Rate - Afr Amer 97 mL/min (>60); Free T3 2.6 pg/mL (2.18-3.98); Globulin 3.4 g/dL (2.2-4.2); Glucose 95 mg/dL (74-106); High Density Lipoprotein 61 mg/dL; Potassium 3.8 mmol/L (3.5-5.1); Sodium Level 141 mmol/L (136-145); T4 Free Direct 0.99 ng/dL (0.76-1.46); Thyroid Stim Hormone (TSH) 1.54 uIU/mL (0.358-3.74); Triglycerides 63 mg/dL; Very Low Density Lipoprotein 13 mg/dL (5-40)
== END ==
PROVIDERS: PCP Family Medicine; Referring Provider Family Medicine; Visit Provider Family Medicine
DX: Z00.00 Encounter for general adult medical examination without abnormal findings (principal); E03.9 Hypothyroidism, unspecified; E53.8 Deficiency of other specified B group vitamins; E55.9 Vitamin D deficiency, unspecified; Z51.81 Encounter for therapeutic drug level monitoring
CPT/HCPCS: 36415; 80053; 80061; 82306; 82607; 84439; 84443; 84481; 85025

== ENCOUNTER → 2021-02-27 12:55 | Outpatient (CLI) | payer MEDICARE, OTHER, SELFPAY ==
[2020-07-29 10:42] VITALS: BMI 34.3
--- NOTE | 2021-02-27 12:57 | BI_ITS ---
MAMMOGRAPHY - BILATERAL SCREENING 3-D TOMOSYNTHESIS REASON FOR EXAM: Female, 71 years old. Annual screening mammogram. PERTINENT HISTORY: Paternal cousin in 7 decade. TECHNIQUE: 2-D mammograms and 3-D Tomosynthesis of the breast (s) were performed. CAD was performed. COMPARISON: 03/24/2018, 01/21/2017. FINDINGS: The breast composition is almost entirely fat. Scattered benign calcifications are seen. No dense spiculated masses or suspicious microcalcifications are identified. No architectural distortion is identified. There is no skin thickening or retraction. Normal lymph nodes in both axillae. There has been no significant change since the prior study. BI/SCRN MAMM (CAD)W/ELIDA BILAT IMPRESSION: No mammographic signs of malignancy. Routine yearly mammograms recommended. ASSESSMENT CATEGORY: BIRADS Category 2: Benign. A letter regarding these results will be sent to the patient by the facility within 30 days. FOLLOW UP RECOMMENDATION: Yearly follow up mammogram recommended. (A) Approximately 10% of breast cancers are not detected by mammography. A normal mammogram should not delay biopsy of a clinically suspicious abnormality. Electronically Signed: Iglesia Hilario MD at 12:14 EDT , Service support ,
--- NOTE | 2021-02-27 12:57 | US_ITS ---
STUDY: THYROID ULTRASOUND REASON FOR EXAM: Female, 71 years old. NODULES TECHNIQUE: Ultrasound evaluation of the thyroid was performed with real-time and static valenzuela-scale imaging. COMPARISON: 02/26/2019 FINDINGS: In today''s examination: RIGHT LOBE: The right lobe of the thyroid gland measures 4.6 x 1.3 x 1.5cm. There is a homogeneous echotexture. Multiple small cystic nodules one measures 5 x 5 x 4 mm the lower aspect of the right lobe. The largest measures 6 x 6 x 4 mm in the upper aspect of the right lobe. LEFT LOBE: The left lobe of the thyroid gland measures 4.2 x 1.9 x 1.4 cm also noted are multiple cystic nodules one of them measures 5 x 5 x 4 mm lower aspect of the left lobe. The other one measures 1.1 x 1 x 0.8 cm which is solid. ISTHMUS: The isthmus measures 2.4 mm . The regional lymph nodes are normal. US/Thyroid IMPRESSION: Multiple cystic nodules involving both lobes of the thyroid with minimal if any changes noted since the study of 02/26/2019. Electronically Signed: Haresh Torres, at 7:47 EDT Tel , Service support ,
== END ==
PROVIDERS: PCP Family Medicine; Referring Provider Family Medicine; Visit Provider Family Medicine
DX: Z12.31 Encounter for screening mammogram for malignant neoplasm of breast (principal); E04.2 Nontoxic multinodular goiter
CPT/HCPCS: 76536; 77063; 77067

== ENCOUNTER 2021-03-30 08:20 | Emergency (ER) | payer MEDICARE, OTHER, SELFPAY ==
[2020-07-29 10:42] VITALS: BMI 34.3
[2021-03-30 08:22] VITALS: BP 136/74; PULSE 81; RESP 17; TEMP 36.1; O2SAT 98; BMI 34.1
--- NOTE | 2021-03-30 08:55 | EDS_ITS ---
HPI HPI - GI History of Present Illness Chief Complaint: Constipation Informant: patient Abdominal Pain/Flank Pain Onset: Weeks Context: Gradual Onset Timing: Continuous Quality: - (Pressure and fullness in rectum and central abdomen) Location: - (Rectum and abdomen) Current Severity: Mild Maximum Severity: Moderate Worsened by: - (Attempt to have bowel movement) Relieved by: Nothing Nausea/Vomiting/Emesis GI Symptom: Negative for Nausea and Vomiting Diarrhea/Melena/Hematochezia GI Symptom: Negative for Diarrhea, Melena and Hematochezia Associated Symptoms Associated Symptoms: Negative for Dysuria, Frequency and Hematuria Narrative Narrative: Patient is notably woman has not had a bowel movement 1 week. She states she has taken several Dulcolax with no results. She is still passing gas. She is status post cholecystectomy. She denies fever, chills night sweats. She denies urologic symptoms. Denies prior history of bowel obstruction. She feels there is something stuck in her rectum. She denies blood per rectum. She denies history of hemorrhoids. Prior similar symptoms: No Recent Illness/Hospitalization: No [facility] BED[facility] AT [facility] Medical History Ascending aorta dilatation COPD (chronic obstructive pulmonary disease) Dilated aortic root Dyspnea on exertion Elevated blood pressure reading without diagnosis of hypertension Essential hypertension GERD (gastroesophageal reflux disease) History of anemia History of pneumonia Hypertension Nonrheumatic aortic (valve) insufficiency Palpitations Peripheral neuropathy Thyroid nodule Home Medications aspirin 81 mg PO DAILY@0800 07/12/14 [History Last Taken 07/11/14 17:00] metoprolol succinate 50 mg tablet,extended release 24 hr 50 mg PO QDAY 03/25/18 [History Last Taken Unknown] amitriptyline 25 mg tablet 25 mg PO QHS 12/10/19 [History Last Taken Unknown] famotidine 20 mg tablet 20 mg PO DAILY 12/10/19 [History Last Taken Unknown] fluconazole 200 mg tablet 200 mg PO .weekly tab 12/10/19 [History Last Taken Unknown] fluticasone propionate 50 mcg/actuation nasal spray,suspension 1 spray INTRANASAL BID 12/10/19 [History Last Taken Unknown] glucosamine-chondroitin 250 mg-200 mg tablet 2 tab PO QPC 12/10/19 [History Last Taken Unknown] dextroamphetamine 7.5 mg tablet 7.5 mg PO DAILY 07/29/20 [History Last Taken Unknown] hydrochlorothiazide 25 mg tablet 25 mg PO QAM #90 tab 11/28/20 [Rx Last Taken Unknown] lisinopril 40 mg tablet 40 mg PO QHS #90 tablet 11/28/20 [Rx Last Taken Unknown] Allergy/AdvReac Type Severity Reaction Status Date / Time codeine AdvReac Rash Verified 03/30/21 08:21 Family History Father Diabetes Hypertension CAD (coronary artery disease) COPD (chronic obstructive pulmonary disease) Mother blood clots Surgical History History of appendectomy History of cholecystectomy (1978) Social History (Updated 03/30/21 @ 08:[address] Deon Ramirez MD) household members: spouse Smoking Status: Never smoker alcohol intake: never substance use type: does not use caffeine: No ROS ROS ED Constitutional Constitutional ED: Denies fever(s), subjective or sweats ENT ENT ED: Denies ear pain or rhinorrhea Gastrointestinal Gastrointestinal: Reports abdominal pain and constipation; Denies diarrhea, melena, nausea or vomiting Genitourinary Genitourinary ED: Denies dysuria, hematuria or urinary frequency Hematologic/Lymphatic Hematologic/Lymphatic: Denies easy bleeding or easy bruising EXAM Physical Exam Const Vital Signs: 03/30/21 08:22 Temperature 97.0 F L Temperature Source Temporal Pulse Rate 81 Respiratory Rate 17 Blood Pressure 136/74 H Blood Pressure Mean 94 Pulse Ox 98 Oxygen Delivery Method Room Air Positive well nourished, well developed and obese General Appearance ED: well developed Nutritional Appearance: obese HEENT Reports moist mucous membranes HEENT Narrative: Face is symmetric. Ears symmetric. Nares patent. normocephalic and atraumatic Eyes PERRL and EOMs intact bilaterally General Eye ED: Negative for pale conjunctiva or scleral icterus Neck no lymphadenopathy, supple and no JVD Resp normal respiratory effort and clear to auscultation bilaterally Cardio regular rate, regular rhythm and no murmurs GI no masses; Negative for non-tender or non-distended Inspection: abdominal distention Auscultation: hypoactive bowel sounds; Negative for normoactive bowel sounds Palpation: soft and tender periumbilical; Negative for guarding or rigid Narrative: Patient has hemorrhoids on rectal exam. There is a large fecal impaction. Back/Spine no CVA tenderness Neuro CN's II-XII intact bilaterally Sensorium / Orientation: alert, oriented to person, oriented to place and oriented to time Psych mental status grossly normal Skin no wounds Lesions: no lesions Rashes: no rashes MDM MDM MDM Narrative Medical decision making narrative: Patient has a fecal impaction. Plan is to anesthetize with lidocaine and digital disimpact. Procedures Other Procedures Procedure(s): Digital disimpaction by physician Discharge Plan Triage Chief Complaint: Constipation ED Provider: Deon Ramirez Dx/Rx/DC Orders Clinical Impression: Fecal impaction in rectum Instructions: ED Fecal Impaction, Treated Prescriptions: No Action metoprolol succinate 50 mg tablet extended release 24 hr 50 mg PO QDAY RF: 0 amitriptyline 25 mg tablet 25 mg PO QHS RF: 0 fluticasone propionate [Flonase Allergy Relief] 50 mcg/actuation spray,suspens ion 1 spray INTRANASAL BID RF: 0 fluconazole 200 mg tablet 200 mg PO .weekly RF: 0 famotidine [Pepcid AC] 20 mg tablet 20 mg PO DAILY RF: 0 glucosamine-chondroitin 250 mg-200 mg tablet 250-200 mg tablet 2 tab PO QPC RF: 0 dextroamphetamine 7.5 mg tablet 7.5 mg PO DAILY RF: 0 aspirin 81 MG tablet,chewable 81 mg PO DAILY@0800 RF: 0 lisinopril 40 mg tablet 40 mg PO QHS Qty: 90 RF: 4 hydrochlorothiazide 25 mg tablet 25 mg PO QAM Qty: 90 RF: 4 Primary Care Provider: Eleonora Edgar Referrals: Eleonora Edgar DO [Primary Care Provider] - As Needed Activity Restrictions/Additional Instructions: You need to drink a glass of MiraLAX 3 times a day for the next week. After a week recommend drinking 2 glasses of MiraLAX a day for an additional week then may decrease to 1 glass/day. Recommend increasing the fiber in your diet and increasing your liquid intake Disposition Disposition: Home, Self Care
[2021-03-30] MEDS: Lidocaine Jelly 2% 20 ML Syringe (URO-JET) 20 APPLIC TOPICAL (09:05)
[2021-03-30 09:48] VITALS: PULSE 81; RESP 16; O2SAT 97
== END 2021-03-30 09:49 | disposition home or self-care (01) ==
LOC: ED 09:12
PROVIDERS: Emergency Provider Emergency Medicine; PCP Family Medicine
DX: K59.00 Constipation, unspecified (principal); E66.9 Obesity, unspecified; Z68.34 Body mass index [BMI] 34.0-34.9, adult; I10 Essential (primary) hypertension; I35.1 Nonrheumatic aortic (valve) insufficiency; J44.9 Chronic obstructive pulmonary disease, unspecified; K21.9 Gastro-esophageal reflux disease without esophagitis; G62.9 Polyneuropathy, unspecified; E04.1 Nontoxic single thyroid nodule; I77.810 Thoracic aortic ectasia; Z86.2 Personal history of diseases of the blood and blood-forming organs and certain disorders involving the immune mechanism; Z87.01 Personal history of pneumonia (recurrent); Z90.49 Acquired absence of other specified parts of digestive tract; Z79.82 Long term (current) use of aspirin; Z79.899 Other long term (current) drug therapy
CPT/HCPCS: 99282

== ENCOUNTER → 2021-05-24 13:27 | Outpatient (CLI) | payer MEDICARE, OTHER, SELFPAY ==
--- NOTE | 2021-05-24 13:29 | CT_ITS ---
STUDY: CTA CHEST REASON FOR EXAM: Female, 71 years old. Hx of dilated aortic root RADIATION DOSAGE (If Supplied By Facility): CTDIvol = ( 26.82 ) mGy, DLP = ( 500.56 ) mGycm TECHNIQUE: The examination was performed with the intravenous administration of IV 100mL Isovue-370. Post-processing of the angiographic images was performed, with multiplanar reformation and 3D reconstruction. Individualized dose optimization techniques were used for this CT. COMPARISON: Comparison is made with prior study dated 12/14/2019. FINDINGS: Stable 10 mm x 8 mm hypodense nodule in the lower aspect of the left lobe of the thyroid. Normal enhancement of the main pulmonary artery and right and left pulmonary arteries. Normal enhancement of the bilateral peripheral pulmonary arteries. There is no demonstrated pulmonary embolism. There is aneurysmal dilatation of the ascending aorta. The transverse diameter of the ascending aorta measures 42.1 mm''s. There is no demonstrated aortic dissection. Normal heart and pericardium. There are visualized mediastinal lymph nodes, which are within normal size limits, and with normal morphology. Normal hilar regions. Normal visualized trachea and bronchi. The lungs are well expanded. Focal scarring and bronchiectasis along the posterior medial aspect of the right middle lobe. Stable minimal scarring in the lingular segment of the left upper Normal pleura. Normal chest wall structures. There are degenerative changes of thoracic spine. Normal visualized upper abdomen. CT/CTA Chest W/WO Contrast IMPRESSION: Stable examination. No acute abnormality is seen. Electronically Signed: Arian Hussein MD at 15:44 EDT , Service support ,
[2021-05-24 13:41] LABS: CREATININE FINGERSTICK 1.2 mg/dL (0.55-1.02)
== END ==
PROVIDERS: PCP Family Medicine; Referring Provider Nurse Practitioner Gerontology; Visit Provider Nurse Practitioner Gerontology
DX: I77.810 Thoracic aortic ectasia (principal)
CPT/HCPCS: 71275; Q9967

== ENCOUNTER → 2021-08-14 | Outpatient (CLI) | payer MEDICARE, OTHER, SELFPAY | END | disposition home or self-care (01) | PROVIDERS: PCP Family Medicine; Referring Provider Family Medicine; Visit Provider Family Medicine | DX: Z20.828 Contact with and (suspected) exposure to other viral communicable diseases (principal) | CPT/HCPCS: 87633; 87635; U0005; U0003 ==

== ENCOUNTER → 2022-05-24 | Outpatient (CLI) | payer MEDICARE, OTHER, SELFPAY ==
--- NOTE | 2022-05-24 14:00 | CT_ITS ---
STUDY: CTA CHEST REASON FOR EXAM: Female, 72 years old. Dilatation of the root of the descending thoracic aorta. RADIATION DOSAGE (If Supplied By Facility): CTDIvol = ( 13.04 ) mGy, DLP = ( 421.20 ) mGycm TECHNIQUE: The examination was performed with the intravenous administration of 100ML OF ISOVUE 370. Post-processing of the angiographic images was performed, with multiplanar reformation and 3D reconstruction. Individualized dose optimization techniques were used for this CT. COMPARISON: Comparison is made with prior study dated 05/24/2021. FINDINGS: There is a 7.8 mm hypodense nodule in the anterior portion of the left lobe of the thyroid. Normal enhancement of the main pulmonary artery and right and left pulmonary arteries. Normal enhancement of the bilateral peripheral pulmonary arteries. There is no demonstrated pulmonary embolism. There is aneurysmal dilatation of the ascending aorta. The transverse diameter of the ascending aorta measures 41.3 mm''s. There is no demonstrated aortic dissection. Normal heart and pericardium. There are visualized mediastinal lymph nodes, which are within normal size limits, and with normal morphology. Normal hilar regions. Normal visualized trachea and bronchi. The lungs are well expanded. Normal pulmonary parenchyma. Normal pleura. Normal chest wall structures. There are degenerative changes of thoracic spine. Fatty infiltration of the liver. CT/CTA Chest W/WO Contrast IMPRESSION: Stable mild dilatation of the root of the ascending thoracic aorta. Electronically Signed: Arian Hussein MD at 15:29 EDT ,
[2022-05-24 14:21] LABS: CREATININE FINGERSTICK < 0.9 mg/dL (0.55-1.02); EGFR FINGERSTICK > 60.0000 mL/min (>60)
== END | disposition home or self-care (01) ==
LOC: CT 13:41
PROVIDERS: PCP Family Medicine; Visit Provider Physician Assistant Medical
DX: I77.810 Thoracic aortic ectasia (principal); I35.1 Nonrheumatic aortic (valve) insufficiency
CPT/HCPCS: 71275; Q9967; A4216

== ENCOUNTER → 2022-07-10 | Outpatient (CLI) | payer MEDICARE, OTHER, SELFPAY ==
--- NOTE | 2022-07-10 12:45 | ECHOD_ITS ---
Reason For Study: MURMUR Procedure This was a 2D Doppler, Color Flow transthoracic echocardiogram. The exam was of adequate technical quality. Exam performed in department. Left Ventricle Normal LV size. Left ventricular systolic function is normal. The estimated ejection fraction is 65 %. The global longitudinal strain = -19 % (normal). Diastolic function is indeterminate. No regional wall motion abnormalities noted. Right Ventricle Normal RV size. Normal systolic function. Atria The left atrium is mildly enlarged. The right atrium is mildly enlarged. No doppler evidence for ASD. Mitral Valve There is no mitral annular calcification. Mild diffuse mitral valve thickening. Mild-Moderate (1-2+) eccentric mitral valve insufficiency. Tricuspid Valve Normal tricuspid valve. Mild tricuspid valve insufficiency. Right ventricular systolic pressure estimated to be 35 mmHg. Aortic Valve Trisinus/trileaflet aortic valve. Mild diffuse aortic valve thickening. Mild (1+) aortic valve insufficiency. Pulmonic Valve The pulmonic valve is not well visualized. Trivial pulmonic valve insufficiency. Great Vessels Normal sized aortic root. Pericardium/Pleural No pericardial effusion. MMode/2D Measurements & Calculations LVIDd: 5.2 cm IVSd: 0.55 cm Ao root diam: 3.7 cm LVIDs: 3.2 cm LVPWd: 0.85 cm RVDd: 3.5 cm FS: 38.5 % LAV(MOD-bp): 92.6 ml LVAd ap4: 27.3 cm2 SV(MOD-sp4): 46.9 ml LAV(MOD-bp) Indexed: 50.2 ml/m2 LVLd ap4: 8.0 cm LAV(MOD-sp2): 99.4 ml EDV(MOD-sp4): 78.3 ml LAV(MOD-sp4): 77.3 ml EDV(sp4-el): 79.1 ml LVAs ap4: 15.1 cm2 LVLs ap4: 6.5 cm ESV(MOD-sp4): 31.4 ml ESV(sp4-el): 29.9 ml EF(MOD-sp4): 59.9 % EF(sp4-el): 62.2 % SV(sp4-el): 49.3 ml LA A4 area: 24.6 cm2 LA dimension(2D): 4.1 cm RA A4 area: 29.4 cm2 Time Measurements MV dec time: 0.19 sec Doppler Measurements & Calculations MV E max victor manuel: 95.0 cm/sec Lat Peak E' Victor Manuel: 10.2 cm/sec Med Peak E' Victor Manuel: 9.2 cm/sec MV A max victor manuel: 100.3 cm/sec E/E' lat: 9.4 E/E' med: 10.3 MV E/A: 0.95 MV V2 max: 115.0 cm/sec Ao V2 max: 160.6 cm/sec MV max P.3 mmHg MV dec slope: 511.6 cm/sec2 Ao max P.3 mmHg MV V2 mean: 73.2 cm/sec Ao V2 mean: 104.0 cm/sec MV mean P.3 mmHg Ao mean P.1 mmHg MV V2 VTI: 42.5 cm Ao V2 VTI: 39.9 cm AI max victor manuel: 412.2 cm/sec LV V1 max: 112.2 cm/sec MR max victor manuel: 494.6 cm/sec AI max P.0 mmHg LV V1 max P.0 mmHg MR max P.8 mmHg LV V1 mean P.6 mmHg AI dec slope: 285.0 cm/sec2 LV V1 mean: 74.4 cm/sec AI P1/2t: 423.7 msec LV V1 VTI: 29.5 cm PA V2 max: 104.7 cm/sec TR max victor manuel: 283.1 cm/sec PA max PG (full): 0.65 mmHg TR max P.1 mmHg PA V2 mean: 73.3 cm/sec PA mean PG (full): 0.62 mmHg ECHO/Echo Complete Interpretation Summary Left ventricular systolic function is normal. The estimated ejection fraction is 65 %. The global longitudinal strain = -19 % (normal). The left atrium is mildly enlarged. The right atrium is mildly enlarged. Mild diffuse mitral valve thickening. Mild-Moderate (1-2+) eccentric mitral valve insufficiency. Mild tricuspid valve insufficiency. Mild diffuse aortic valve thickening. Mild (1+) aortic valve insufficiency. Trivial pulmonic valve insufficiency. Right ventricular systolic pressure estimated to be 35 mmHg. Diastolic function is indeterminate. Ordering Physician: Cecilia Oquendo Referring Physician: Cecilia Oquendo Performed By: Kristen Dumont RCS
== END | disposition home or self-care (01) ==
LOC: CVS 12:45
PROVIDERS: PCP Family Medicine; Referring Provider Physician Assistant Medical; Visit Provider Physician Assistant Medical
DX: R01.1 Cardiac murmur, unspecified (principal); I77.810 Thoracic aortic ectasia; I35.1 Nonrheumatic aortic (valve) insufficiency
CPT/HCPCS: 93306

== ENCOUNTER → 2024-06-05 | Outpatient (CLI) | payer MEDICARE, OTHER, SELFPAY ==
[2024-06-05 15:47] LABS: Vitamin B12 539 pg/mL (211-911)
[2024-06-05 15:55] LABS: ALB/GLOB Ratio 1.3 RATIO (0.9-2.4); AST(SGOT) 16 U/L (15-37); Alanine Aminotransfer ALT/SGPT 21 U/L (13-56); Albumin, Serum 3.8 g/dL (3.2-5.0); Alkaline Phosphatase 58 U/L (45-117); Anion Gap 7 (5-15); BUN 26 mg/dL (7-18); BUN/Creat Ratio 25.7 RATIO (10-20); Calcium,Total 9.6 mg/dL (8.5-10.1); Chloride 102 mmol/L (98-107); Cholesterol 165 mg/dL (200); Creatinine, Serum 1.01 mg/dL (0.55-1.02); EST Glomerular Filtration Rate 57 mL/min (>60); Est Glom Filt Rate - Afr Amer 69 mL/min (>60); Free T3 2.4 pg/mL (2.18-3.98); Glucose 105 mg/dL (74-106); High Density Lipoprotein 78 mg/dL; Protein, Total 6.8 g/dL (6.4-8.2); Sodium Level 134 mmol/L (136-145); T4 Free Direct 1.13 ng/dL (0.76-1.46); Triglycerides 56 mg/dL; Very Low Density Lipoprotein 11 mg/dL (5-40)
== END | disposition home or self-care (01) ==
LOC: BFHLAB 13:38
PROVIDERS: PCP Family Medicine; Referring Provider Family Medicine; Visit Provider Family Medicine
DX: E03.9 Hypothyroidism, unspecified (principal); E53.8 Deficiency of other specified B group vitamins; E55.9 Vitamin D deficiency, unspecified; I10 Essential (primary) hypertension; Z51.81 Encounter for therapeutic drug level monitoring
CPT/HCPCS: 36415; 80053; 80061; 82306; 82607; 84439; 84443; 84481

== ENCOUNTER → 2024-11-11 | Outpatient (CLI) | payer MEDICARE, OTHER, SELFPAY ==
--- NOTE | 2024-11-11 11:58 | US_ITS ---
PROCEDURE: US THYROID REASON FOR EXAM: Nodules TECHNIQUE: Grayscale and color Doppler imaging of the thyroid was performed. COMPARISON: 02/27/2021. Only the images are available for comparison, the report is not available at the time of dictation. FINDINGS: Right lobe measures 4.9 x 1.5 x 2.1 cm. Essentially homogeneous background echotexture. No abnormal vascularity. Nodules as below: *5 x 6 x 3 mm, mostly cystic, not suspicious. *6 x 6 x 4 mm, solid, partially hypoechoic, TI-RADS 4. Previously 6 x 4 x 6 mm. *Additional smaller tiny cysts/nodules. Left lobe measures 5.1 x 2.0 x 2.0 cm. Essentially homogeneous background echotexture. No abnormal vascularity. Nodules as below: *11 x 8 x 8 mm, mostly solid, isoechoic, TI-RADS 3. Previously 11 x 8 x 10 mm. *9 x 6 x 7 mm, mixed cystic and solid, essentially isoechoic solid components, tie rads 2. Previously 5 x 4 x 5 mm with increase in the degree of cystic components. *Additional smaller tiny cysts/nodules. Isthmus measures 2 mm in thickness. US/Thyroid IMPRESSION: 1. Assessment is TI-RADS 4. No nodules currently meet criteria for FNA or foll ow-up. 2. Normal size gland with essentially unremarkable background echotexture. No abnormal vascularity. Reading Location: [id number]
--- NOTE | 2024-11-11 11:58 | BI_ITS ---
PROCEDURE: SCRN MAMM (CAD)W/ELIDA BILAT REASON FOR EXAM: F, Age 74 y/o, no family history. Routine follow-up. TECHNIQUE: Bilateral screening digital breast tomosynthesis with 2D and 3D images. Computer aided detection. COMPARISON: Prior exam(s) dating back to February 27, 2021.. FINDINGS: There are scattered areas of fibroglandular density. Stable bilateral fat containing axillary lymph nodes. No suspicious masses, areas of developing architectural distortion, or suspicious calcifications. BI/SCRN MAMM (CAD)W/ELIDA BILAT IMPRESSION: BI-RADS 2: BENIGN. RECOMMEND ANNUAL MAMMOGRAPHIC SCREENING. Follow-up code: Routine Follow-up The patient will be notified of the results by letter. Reading Location: [id number]
== END | disposition home or self-care (01) ==
LOC: OPBI 11:54
PROVIDERS: PCP Family Medicine; Referring Provider Family Medicine; Visit Provider Family Medicine
DX: Z12.31 Encounter for screening mammogram for malignant neoplasm of breast (principal)
CPT/HCPCS: 76536; 77063; 77067

== ENCOUNTER → 2024-11-19 | Outpatient (CLI) | payer MEDICARE, OTHER, SELFPAY ==
--- NOTE | 2024-11-19 07:27 | CT_ITS ---
PROCEDURE: CTA CHEST W/WO CONTRAST REASON FOR EXAM: DILATED AORTIC ROOT TECHNIQUE: CTA imaging of the chest with intravenous contrast. 3D reconstructions. CONTRAST: 100 mL of Isovue 370. COMPARISON: Comparison is made with prior study dated May 24, 2022. FINDINGS: Stable 7.5 mm hypodense nodule in the left lobe of the thyroid. Lymph nodes: No mediastinal hilar or axillary lymphadenopathy. Heart: Normal heart size. No pericardial effusion. RV/LV Diameter Ratio: N/A Thoracic Aorta: There is dilatation at the root of the ascending thoracic aorta with a transverse dimension of 44 mm. No evidence of dissection. Pulmonary Vessels: No evidence of acute pulmonary emboli through the major subsegmental branches. Most Proximal Level of Embolus (if embolus present): N/A Lungs and Airways: Mild increased linear markings in the anterior aspect of the left lower lobe abutting the left major fissure suggestive of scarring. Pleura: No pleural effusion. No pneumothorax. Upper Abdomen: Fatty infiltration of the liver. Bones: Degenerative changes of the thoracic spine. CT/CTA Chest W/WO Contrast IMPRESSION: There is dilatation of the ascending thoracic aorta measuring 44 mm in transver se dimension. The remainder of the examination is unchanged. One or more dose reduction techniques were used (e.g., Automated exposure contr ol, adjustment of the mA and/or kV according to patient size, use of iterative reconstruction technique). Reading Location: [id number]
== END | disposition home or self-care (01) ==
LOC: CT 07:27
PROVIDERS: PCP Family Medicine; Referring Provider Family Medicine; Visit Provider Family Medicine
DX: I77.810 Thoracic aortic ectasia (principal)
CPT/HCPCS: 71275; Q9967; A4216

== ENCOUNTER → 2024-12-25 | Outpatient (CLI) | payer MEDICARE, OTHER, SELFPAY ==
--- NOTE | 2024-12-25 13:22 | STE_ITS ---
Reason For Study Stress Results Protocol: Oumar Protocol Maximum Predicted HR: 146 bpm Target HR: 124 bpm % Maximum Predicted HR: 75 % DurationHeart Rate Stage (mm:ss) (bpm) BP Comment Baseline 75 116/72No Chest Pain Oumar Protocol Stage I 3:00 96 122/70No Chest Pain; Mod Dyspnea; Fatigue Oumar Protocol Stage II 1:20 109 / No Chest Pain; Mod Dyspnea; Fatigue Recovery 84 130/78No Chest Pain Stress Duration: 4:20 mm:ss Maximum Stress HR: 109 bpm METS: 7 Baseline Echocardiogram Findings Stress Echo Wall motion Data Resting WM Intermediate WM Stress WM MMode/2D Measurements & Calculations Ao root diam: 4.0 cm ECHO/Stress Test Echo w/o Contrast Interpretation Summary Exercise stress echo. 74-year-old lady with a history of chest pain. Resting EKG demonstrates normal sinus rhythm with a rate of 75 bpm normal inter vals are noted resting blood pressure is 116/72 mmHg. The patient exercised according to regular Oumar protocol for tota l duration of 4 minutes and 20 seconds. The maximum heart rate attained was 107 bpm which was 73% of maximum predicted heart rate the maximum workload was 7 metabolic equivalents. At rest there were no ST or T wave changes noted suggest ischemia and at peak exercise upsloping ST changes were noted we did not meet the criteria for ischemia. No clinical an iván was noted the test was terminated due to dyspnea. The peak blood pressure was 146/72 mmHg. This was a normal bloo d pressure response to exercise. Stress echocardiogram. The resting echocardiogram demonstrated a resting ejecti on fraction of approximately 55%. There was mild mitral and aortic regurgitation noted a dilated aortic root was noted measuring 4.2 cm. At peak exercise there was thickening of all horne and contraction of low ventricular cavity size and peaking of ejection fraction of 65% with no wall motion abnormalities present. Conclusion: Exercise stress echocardiogram with no evidence of ischemia at a moderate workl oad. Mildly dilated aortic root root and ascending aorta. Mild aortic and mitral regurgitation. Ordering Physician: Eleonora Edgar Referring Physician: Eleonora Edgar Performed By: Kristen Dumont RCS
== END | disposition home or self-care (01) ==
LOC: CVS 13:20
PROVIDERS: PCP Family Medicine; Referring Provider Family Medicine; Visit Provider Family Medicine
DX: R07.9 Chest pain, unspecified (principal)
CPT/HCPCS: 93017; 93350

== ENCOUNTER → 2025-02-24 | Outpatient (CLI) | payer MEDICARE, OTHER, SELFPAY ==
[2025-02-24 17:59] LABS: Absolute Lymphocyte Count 1.67 X10^3/uL (0.83-4.51); Absolute Neutrophil Count 4.7 X10^3/uL (2.0-7.7); Basophil# 0.03 X10^3/uL; Basophil% 0.4 % (0-1); Eosinophil# 0.16 X10^3/uL; Eosinophils% 2.2 % (0-5); Hematocrit 34.4 % (37-47); Hemoglobin 11.2 g/dL (12.0-15.0); Lymphocyte # 1.67 X10^3/ul (0.83-4.51); Lymphocyte % 22.7 % (19-41); Mean Corp Hgb Conc 32.6 g/dL (32-36); Mean Corpuscular Hgb 27.5 pg (27.0-32.0); Mean Corpuscular Volume 84.5 fL (81-99); Mean Platelet Vol. 9.8 fl (6.2-12.0); Monocyte# 0.75 X10^3/uL; Monocyte% 10.2 % (0-10); NRBC Flagged by Analyzer 0 % (0-5); Neutrophil # 4.72 X10^3/uL (2.7-7.7); Neutrophil % 64.2 % (47-70); Platelet Count 363 K/mm3 (150-450); RBC Distribution Width CV 15.9 % (11.6-14.6); RBC Distribution Width SD 49.2 fl (35.1-43.9); Red Blood Count 4.07 M/mm3 (4.2-5.4); White Blood Count 7.4 K/mm3 (4.4-11.0)
[2025-02-24 18:44] LABS: ALB/GLOB Ratio 1.5 RATIO (0.9-2.4); AST(SGOT) 20 U/L (<=31); Alanine Aminotransfer ALT/SGPT 14 U/L (<=34); Albumin, Serum 3.9 g/dL (3.4-4.8); Alkaline Phosphatase 79 U/L (35-104); Anion Gap 11 (5-15); BUN 10 mg/dL (4-19); BUN/Creat Ratio 13.2 RATIO (10-20); Calcium,Total 9.4 mg/dL (7.6-11.0); Carbon Dioxide 25.5 mmol/L (21.0-32.0); Chloride 98 mmol/L (98-108); Cholesterol 199 mg/dL (<=200); Creatinine, Serum 0.78 mg/dL (0.70-1.20); EST Glomerular Filtration Rate 79 (>60); Free T3 2.8 pg/mL (2.18-3.98); Globulin 2.6 g/dL (2.2-4.2); Glucose 92 mg/dL (70-99); High Density Lipoprotein 80 mg/dL; Low Density Lipoprotein Calc. 109 mg/dL; Potassium 3.7 mmol/L (3.3-5.1); Protein, Total 6.5 g/dL (5.9-8.4); Sodium Level 135 mmol/L (133-145); Total Bilirubin 0.32 mg/dL (0.00-1.30); Triglycerides 47 mg/dL; Very Low Density Lipoprotein 9 mg/dL (5-40); Vitamin B12 410 pg/mL (180-914); Vitamin D,25 Hydroxy 60.8 ng/mL (30-100); cholesterol:hdl ratio screen 2.48
--- OUTSIDE RECORDS SUMMARY | 2025-02-24 22:19 | XMS RPT_ITS | CCD ---
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 Eleonora Edgar Primary Care Provider [phone] Dr. Eleonora Edgar Referring Provider [phone] DOTTY Garrido Attending Provider Dr. Eleonora Edgra Primary Care Provider Dr. Eleonora Edgar Referring Provider DOTTY Garrido Attending Provider Dr. Brennen Cornelius Attending Provider Dr. Eleonora Edgar DO Primary Care Provider Dr. Eleonora Edgar DO Attending Provider [phone] Dr. Eleonora Edgar DO Referring Provider [phone] Dr. Micky Chaudhry MD Attending Provider [phone] Guichoys, Eelonora Referring Unavailable Malys, Eleonora Attending Unavailable Malys, Eleonora Primary Care Unavailable Malys, Eleonora Primary Care Unavailable Malys, Eleonora Referring Unavailable Malys, Eleonora Attending Unavailable Malys, Eleonora Referring Unavailable Malys, Eleonora Attending Unavailable Malys, Eleonora Primary Care Unavailable Malys, Eleonora Referring Unavailable Malys, Eleonora Attending Unavailable Malys, Eleonora Primary Care Unavailable Malys, Eleonora Primary Care Unavailable Micky Chaudhry Attending Unavailable Allergies Allergy Classification Reported Allergen(s) Allergy Type Date of Onset Reaction(s) Facility (5 sources) Codeine Drug Allergy 05-17-2022 Rash [facility] (1 source) Codeine Drug Allergy 05-17-2022 [facility] Repository Medications Current Medications Medication Drug Class(es) Dates Sig (Normalized) Sig (Original) amitriptyline hydrochloride 25 mg oral tablet (15 sources) Tricyclic Antidepressant Start: 12-10-2019 take 1 tablet by mouth at bedtime Amitriptyline 25 mg tablet Active 25 mg PO AT BEDTIME December 10, 2019 12:00am Start: 03-24-2018 End: 06-23-2019 take 1 tablet by mouth once daily Amitriptyline 25 mg tablet Discontinued 25 mg PO daily March 24, 2018 12:00am June 23, 2019 5:49pm Start: 07-12-2014 End: 03-24-2018 Amitriptyline 10 MG tablet Discontinued July 12, 2014 1:00am March 24, 2018 9:46am Start: 07-12-2014 End: 03-24-2018 Amitriptyline Discontinued N 2013 12:00am March 24, 2018 8:46am aspirin 81 mg chewable tablet (5 sources) Platelet Aggregation Inhibitor, Nonsteroidal Anti-inflammatory Drug Start: 07-12-2014 take 1 tablet by mouth once daily Aspirin 81 MG tablet,chewable Active 81 mg PO DAILY@0800 July 12, 2014 1:00am cholecalciferol 1.25 mg oral capsule (5 sources) Vitamin D Start: 05-09-2021 take 1 capsule by mouth every week Cholecalciferol (Vitamin D3) 1,250 mcg (50,000 unit) capsule Active 1250 ug PO EVERY WEEK May 09, 2021 12:00am fluconazole 200 mg oral tablet (10 sources) Azole Antifungal Start: 12-10-2019 take 1 tablet by mouth every week Fluconazole 200 mg tablet Active 200 mg PO .weekly December 10, 2019 12:00am Start: 03-25-2018 End: 10-10-2018 take 1 tablet by mouth every week Fluconazole 200 mg tablet Discontinued 200 mg PO .COMPLEX March 25, 2018 12:00am October 10, 2018 12:28pm 200 mg PO once a week fluticasone propionate 0.05 mg/actuat metered dose nasal spray (10 sources) Corticosteroid Start: 12-10-2019 take 50 ug nasal route twice daily Fluticasone Propionate (Flonase Allergy Relief) 50 mcg/actuation spray,suspension Active 1 NMA INTRANASAL TWICE A DAY December 10, 2019 12:00am administer into each nostril Start: 12-10-2019 take 1 spray(s) nasa l route twice daily Fluticasone Propionate (Flonase Allergy Relief) 50 mcg/actuation spray,suspension Active 1 SPRAY INTRANASAL TWICE A DAY December 09, 2019 11:00pm administer into each nostril Start: 03-24-2018 End: 06-23-2019 Fluticasone Propionate (Flon ase Allergy Relief) 50 mcg/actuation spray,suspension Discontinued 2 NMA INTRANASAL daily March 24, 2018 12:00am June 23, 2019 5:49pm Start: 03-24-2018 End: 06-23-2019 Fluticasone Propionate (Flon ase Allergy Relief) 50 mcg/actuation spray,suspension Discontinued 2 SPRAY INTRANASAL daily March 23, 2018 11:00pm June 23, 2019 4:49pm lisinopril 40 mg oral tablet (20 sources) Angiotensin Converting Enzyme Inhibitor Start: 05-17-2022 Lisinopril 40 mg tablet Active 20 mg PO TWICE A DAY May 17, 2022 2:22pm Start: 05-17-2022 take 20 mg by mouth twice estiven y Lisinopril Active 20 MG PO TWICE A DAY May 17, 2022 1:22pm Start: 05-17-2022 End: 05-17-2022 take 1 tablet by mouth once daily Lisinopril 40 mg tablet Discontinued 40 mg PO DAILY May 17, 2022 2:09pm May 17, 2022 2:22pm Start: 12-27-2021 End: 05-17-2022 take 1 tablet by mouth twice daily Lisinopril 40 mg tablet Discontinued 40 mg PO TWICE A DAY December 27, 2021 2:15pm May 17, 2022 2:11pm Start: 12-27-2021 End: 12-27-2021 take 2 tablets by mouth at bedtime Lisinopril 40 mg tablet Discontinued 80 mg PO AT BEDTIME December 27, 2021 2:07pm December 27, 2021 2:15pm Start: 12-27-2021 End: 12-27-2021 take 80 mg by mouth at bedtime Lisinopril Discontinued 80 MG PO AT BEDTIME December 27, 2021 1:07pm December 27, 2021 1:15pm Start: 12-10-2019 End: 12-27-2021 take 1 tablet by mouth at bedtime Lisinopril 40 mg tablet Discontinued 40 mg PO AT BEDTIME November 28, 2020 11:30am December 27, 2021 2:08pm omeprazole 40 mg delayed release oral capsule (5 sources) Proton Pump Inhibitor Start: 05-17-2022 take 1 capsule by mouth once daily Omeprazole 40 mg capsule,delayed release(DR/EC) Active 40 mg PO DAILY May 17, 2022 12:00am oxybutynin chloride 5 mg oral tablet (5 sources) Cholinergic Muscarinic Antagonist Start: 05-09-2021 take 1 tablet by mouth once daily Oxybutynin Chloride 5 mg tablet Active 5 mg PO DAILY May 09, 2021 12:00am Completed/Discontinued Medications Medication Drug Class(es) Dates Sig (Normalized) Sig (Original) calcium carbonate 1500 mg oral tablet (5 sources) Start: 03-24-2018 End: 03-25-2018 take 1 tablet by mouth once daily Calcium Carbonate 600 mg calcium (1,500 mg) tablet Discontinued 600 mg PO daily March 24, 2018 12:00am March 25, 2018 1:45pm chondroitin sulfates 200 mg / glucosamine hydrochloride 250 mg oral tablet (5 sources) Start: 12-10-2019 End: 12-27-2021 Glucosamine-Chondroit in (Osteo Bi-Flex) 250-200 mg tablet Discontinued 2 {tbl} PO after meals December 10, 2019 12:00am December 27, 2021 2:09pm dextroamphetamine sulfate 7.5 mg oral tablet (5 sources) Central Nervous System Stimulant Start: 07-29-2020 End: 05-09-2021 take 1 tablet by mouth once daily Dextroamphetamine Sulfate 7.5 mg tablet Discontinued 7.5 mg PO DAILY July 29, 2020 1:00am May 09, 2021 2:53pm famotidine 20 mg oral tablet (5 sources) Histamine-2 Receptor Antagonist Start: 12-10-2019 End: 05-17-2022 take 1 tablet by mouth once daily before mealtime Famotidine (Pepcid Ac) 20 mg tablet Discontinued 20 mg PO DAILY December 10, 2019 12:00am May 17, 2022 2:10pm Flu Vacc [id number](5yr,Up)(Pf) (2 sources) Start: 07-12-2014 End: 03-24-2018 Flu Vacc [id number](5yr,Up)(Pf) Discontinued July 12, 2014 12:00am March 24, 2018 8:49am Start: 07-12-2014 End: 03-24-2018 Flu Vacc [id number](5yr,Up)(P f) Discontinued July 12, 2014 1:00am March 24, 2018 9:49am Flu Vacc [id number](5yr,Up)(Pf) 45 MCG/0.5 ML syringe (3 sources) Start: 07-12-2014 End: 03-24-2018 Flu Vacc [id number](5yr,Up)(Pf) 45 MCG/0.5 ML syringe Discontinued July 12, 2014 1:00am March 24, 2018 9:49am hydroCHLOROthiazide 25 mg oral tablet (10 sources) Thiazide Diuretic Start: 12-10-2019 End: 05-17-2022 take 1 tablet by mouth once daily in the morning Hydrochlorothiazide 25 mg tablet Discontinued 25 mg PO EVERY MORNING November 28, 2020 11:30am May 17, 2022 2:09pm hydroCHLOROthiazide 25 mg / lisinopril 20 mg oral tablet (5 sources) Thiazide Diuretic, Angiotensin Converting Enzyme Inhibitor Start: 03-24-2018 End: 12-10-2019 Lisinopril-Hydrochloroth iazide 20-25 mg tablet Discontinued 1 {tbl} PO daily March 24, 2018 12:00am December 10, 2019 1:22pm Start: 03-24-2018 End: 12-10-2019 take 1 tablet by mouth once daily Lisinopril-Hydrochlorothiazide Discontin ued 1 TABLET PO daily March 23, 2018 11:00pm December 10, 2019 12:22pm 24 hr metoprolol succinate 50 mg extended release oral tablet (15 sources) beta-Adrenergic Rd Start: 03-25-2018 End: 12-27-2021 take 1 tablet by mouth once daily Metoprolol Succinate 50 mg tablet extended release 24 hr Discontinued 50 mg PO daily May 09, 2021 3:18pm December 27, 2021 2:06pm Start: 07-12-2014 End: 03-25-2018 take 1 tablet by mouth once daily Metoprolol Succinate 25 MG tablet Discontinued 25 mg PO DAILY July 12, 2014 1:00am March 25, 2018 1:44pm raNITIdine 150 mg oral tablet (15 sources) Histamine-2 Receptor Antagonist Start: 03-25-2018 End: 06-23-2019 take 1 tablet by mouth twice daily as needed Ranitidine Hcl (Zantac) 150 mg tablet Discontinued 150 mg PO TWICE A DAY as needed May 14, 2019 11:31am June 23, 2019 5:49pm Start: 03-24-2018 End: 03-25-2018 take 1 tablet by mouth twice daily as needed Ranitidine Hcl (Zantac 75) 75 mg tablet Discontinued 75 mg PO TWICE A DAY as needed March 24, 2018 12:00am March 25, 2018 1:44pm Vitamin B Complex (B Complex-Vitamin B12) tablet (5 sources) Start: 12-27-2021 End: 12-27-2021 Vitamin B Complex (B Complex-Vitamin B12) tablet Discontinued 1 {tbl} PO DAILY December 27, 2021 12:00am December 27, 2021 2:08pm Start: 12-27-2021 End: 12-27-2021 take 1 tablet by mouth once daily Vitamin B Complex (B Complex-Vitamin B12) tablet Discontinued 1 TABLET PO DAILY December 26, 2021 11:00pm December 27, 2021 1:08pm Start: 12-27-2021 End: 12-27-2021 take 1 tablet by mouth once daily Vitamin B Complex (B Complex-Vitamin B12) tablet Discontinued 1 TABLET PO DAILY December 27, 2021 12:00am December 27, 2021 2:08pm Problems Problem Classification Problem Date Documented Date Episodic/Chronic Aortic; peripheral; and visceral artery aneurysms (15 sources) Aortic root dilatation; Translations: [Thoracic aortic ectasia] Onset: 11-30-2024 Chronic Cardiac dysrhythmias (5 sources) Palpitations; Translations: [Palpitations] 05-14-2019 Episodic Chronic obstructive pulmonary disease and bronchiectasis (5 sources) Chronic obstructive lung disease; Translations: [Chronic obstructive pulmonary disease, unspecified] 03-24-2018 Chronic Esophageal disorders (5 sources) Gastroesophageal reflux disease; Translations: [Gastro-esophageal reflux disease without esophagitis] 03-24-2018 Chronic Essential hypertension (7 sources) Essential hypertension; Translations: [Essential (primary) hypertension] Chronic Heart valve disorders (7 sources) Aortic incompetence, non-rheumatic ; Translations: [Nonrheumatic aortic (valve) insufficiency] Chronic Intestinal obstruction without hernia (5 sources) Fecal impaction; Translations: [Fecal impaction of rectum] 03-30-2021 Episodic Lymphadenitis (5 sources) Cervical lymphadenopathy; Translations: [Localized enlarged lymph nodes] 03-24-2018 Episodic Nonspecific chest pain (1 source) Chest pain, unspecified; Translations: [Chest pain, unspecified] Onset: 12-29-2024 Episodic Open wounds of extremities (5 sources) Laceration of right thumb; Translations: [Laceration without foreign body of right thumb without damage to nail, initial encounter] 07-03-2019 Episodic Other lower respiratory disease (5 sources) Dyspnea on exertion; Translations: [Other forms of dyspnea] 03-24-2018 Episodic Other screening for suspected conditions (not mental disorders or infectious disease) (1 source) Encounter for screening mammogram for malignant neoplasm of breast; Translations: [Encounter for screening mammogram for malignant neoplasm of breast] Onset: 11-24-2024 Episodic Thyroid disorders (6 sources) Thyroid nodule; Translations: [Nontoxic single thyroid nodule] Onset: 06-29-2024 03-24-2018 Chronic Results Test Name Value Interpretation Reference Range Facil ity Stress Test Echo w/o Contras ton 12-25-2024 Stress Test Echo w/o Contrast [facility] [address] [place] [address] Stress Test Echo w/o Contrast MR#: [id number] Acct: [id number] Name: BRYAN DESOUZA Rep #: [id number] : 1950 74 From: Micky Chaudhry MD Primary Care: Dr. Eleonora Edgar DO Status: R EG CLI Ordering Dr: Eleonora Edgar DO Sex: F C Reason For Study Stress Results Protocol: Oumar Protocol Maximum Predicted HR: 146 bpm Target HR: 124 bpm % Maximum Predicted HR: 75 % DurationHeart Rate Stage (mm:ss) (bpm) BP Comment Baseline 75 116/72No Chest Pain Oumar Protocol Stage I 3:00 96 122/70No Chest Pain; Mod Dyspnea; Fatigue Oumar Protocol Stage II 1:20 109 / No Chest Pain; Mod Dyspnea; Fatigue Recovery 84 130/78No Chest Pain Stress Duration: 4:20 mm:ss Maximum Stress HR: 109 bpm METS: 7 Baseline Echocardiogram Findings Stress Echo Wall motion Data Resting WM Intermediate WM Stress WM MMode/2D Measurements Calculations Ao root diam: 4.0 cm ECHO/Stress Test Echo w/o Contrast Interpretation Summary Exercise stress echo. 74-year-old lady with a history of chest pain. Resting EKG demonstrates normal sinus rhythm with a rate of 75 bpm normal intervals are noted resting blood pressure is 116/72 mmHg. The patient exercised according to regular Oumar protocol for total duration of 4 minutes and 20 seconds. The maximum heart rate attained was 107 bpm which was 73% of maximum predicted heart rate the maximum workload was 7 metabolic equivalents. At rest there were no ST or T wave changes noted suggest ischemia and at peak exercise upsloping ST changes were noted we did not meet the criteria for ischemia. No clinical angina was noted the test was terminated due to dyspnea. The peak blood pressure was 146/72 mmHg. This was a normal blood pressure response to exercise. Stress echocardiogram. The resting echocardiogram demonstrated a resting ejection fraction of approximately 55%. There was mild mitral and aortic regurgitation noted a dilated aortic root was noted measuring 4.2 cm. At peak exercise there was thickening of all horne and contraction of low ventricular cavity size and peaking of ejection fraction of 65% with no wall motion abnormalities present. Conclusion: Exercise stress echocardiogram with no evidence of ischemia at a moderate workload. Mildly dilated aortic root root and ascending aorta. Mild aortic and mitral regurgitation. Ordering Physician: Eleonora Edgar Referring Physician: Eleonora Edgar Performed By: Kristen Dumont RCS 12/25/24 1526 Date Mciky Chaudhry MD CC: Dr. Eleonora Edgar, Date Dictated: 12/25/24 1352 Date Transcribed: 12/25/24 1526 Patcher: Signed Normal [facility] Stress echocardiogram study reportOrdered By: Micky Chaudhry on 12-25-2024 Stress cardiac echo study report [facility] [address] [place] [address] Stress Test Echo w/o Contrast MR#: [id number] Acct: [id number] Name: BRYAN DESOUZA Rep #: [id number] : 1950 74 From: Micky Chaudhry MD Primary Care: Dr. Eleonora Edgar DO Status: REG CLI Ordering Dr: Eleonora Edgar DO Sex: F C Reason For Study Stress Results Protocol: Oumar Protocol Maximum Predicted HR: 146 bpm Target HR: 124 bpm % Maximum PredictedHR: 75 % DurationHeart Rate Stage (mm:ss) (bpm) BP Comment Baseline 75 116/72No Chest Pain Oumar Protocol Stage I 3:00 96 122/70No Chest Pain;Mod Dyspnea; Fatigue Oumar Protocol Stage II 1:20 109 / No Chest Pain;Mod Dyspnea; Fatigue Recovery 84 130/78No Chest Pain Stress Duration: 4:20 mm:ss Maximum Stress HR: 109 bpm METS:7 Baseline Echocardiogram Findings Stress Echo Wall motion Data Resting WM Intermediate WM Stress WM MMode/2D Measurements & Calculations Ao root diam: 4.0 cm ECHO/Stress Test Echo w/o Contrast Interpretation Summary Exercise stress echo. 74-year-old lady with a history of chest pain. Resting EKG demonstrates normal sinus rhythm with a rate of 75 bpm normal intervals are noted resting blood pressure is 116/72 mmHg. The patient exercised according to regular Oumar protocol for totalduration of 4 minutes and 20 seconds. The maximum heart rate attained was 107 bpm which was 73% of maximum predicted heart rate the maximum workload was 7 metabolic equivalents. At rest there were no ST or T wave changes noted suggest ischemia and at peak exercise upsloping ST changes were noted we did not meet the criteria for ischemia. No clinical angina was noted the test was terminated due to dyspnea. The peak blood pressure was 146/72 mmHg. This was a normal bloodpressure response to exercise. Stress echocardiogram. The resting echocardiogram demonstrated a resting ejection fraction of approximately 55%. There was mild mitral and aortic regurgitation noted a dilated aortic root was noted measuring 4.2 cm. At peak exercise there was thickening of all horne and contraction of low ventricular cavity size and peaking of ejection fraction of 65% with no wall motion abnormalities present. Conclusion: Exercise stress echocardiogram with no evidence of ischemia at a moderate workload. Mildly dilated aortic root root and ascending aorta. Mild aortic and mitral regurgitation. Ordering Physician: Eleonora Edgar Referring Physician: Eleonora Edgar Performed By: Kristen Dumont RCS 12/25/24 1526 Date _ Micky Chaudhry MD CC: Dr. Eleonora Edgar, DO ~ Date Dictated: 12/25/24 1352 Date Transcribed: 12/25/24 1526 Patcher: Signed [facility] Work Phone: CTA Chest W/WO Contraston CTA Chest W/WO Contrast [facility] [address] [place] [address] CTA Chest W/WO Contrast MR#: [id number] Acct: [id number] Name: BRYAN DESOUZA Rep #: [id number] : 1950 F 74 From: Arian hernandez MD PCP: Dr. Eleonora Edagr DO Status: [facility] Study: CTA Chest W/WO Contrast Date of Exam: 11/19/24 Exam# [id number] Ordering Dr: Eleonora Edgar DO PROCEDURE: CTA CHEST W/WO CONTRAST REASON FOR EXAM: DILATED AORTIC ROOT TECHNIQUE: CTA imaging of the chest with intravenous contrast. 3D reconstructions. CONTRAST: 100 mL of Isovue 370. COMPARISON: Comparison is made with prior study dated May 24, 2022. FINDINGS: Stable 7.5 mm hypodense nodule in the left lobe of the thyroid. Lymph nodes: No mediastinal hilar or axillary lymphadenopathy. Heart: Normal heart size. No pericardial effusion. RV/LV Diameter Ratio: N/A Thoracic Aorta: There is dilatation at the root of the ascending thoracic aorta with a transverse dimension of 44 mm. No evidence of dissection. Pulmonary Vessels: No evidence of acute pulmonary emboli through the major subsegmental branches. Most Proximal Level of Embolus (if embolus present): N/A Lungs and Airways: Mild increased linear markings in the anterior aspect of the left lower lobe abutting the left major fissure suggestive of scarring. Pleura: No pleural effusion. No pneumothorax. Upper Abdomen: Fatty infiltration of the liver. Bones: Degenerative changes of the thoracic spine. CT/CTA Chest W/WO Contrast IMPRESSION: There is dilatation of the ascending thoracic aorta measuring 44 mm in transverse dimension. The remainder of the examination is unchanged. One or more dose reduction techniques were used (e.g., Automated exposure control, adjustment of the mA and/or kV according to patient size, use of iterative reconstruction technique). Reading Location: [id number] CC: Dr. Eleonora Edgar DO Patcher: Signed Normal [facility] Breast imaging reportOrdered By: Arian Hussein on 11-11-2024 Study report [facility] [address] [place] [address] SCRN MAMM (CAD)W/ELIDA BILAT MR#: [id number] Acct: [id number] Name: BRYAN DESOUZA Rep #: [id number] : 1950 F 74 From: Pillo Hussein MD PCP: Dr. Eleonora Edgar DO Status: REG CLI Study:SCRN MAMM (CAD)W/ELIDA BILAT Date of Exa m: 11/11/24 Exam# [id number] Ordering Dr: Savannah Edgar sa, DO PROCEDURE: SCRN MAMM (CAD)W/ELIDA BILAT REASON FOR EXAM: F, Age 74 y/o, no family history. Routine follow-up. TECHNIQUE: Bilateral screening digital breast tomosynthesis with 2D and 3D images. Computeraided detection. COMPARISON: Prior exam(s) dating back to February 27, 2021.. FINDINGS: There are scattered areas of fibroglandular density. Stable bilateral fat containing axillary lymph nodes. No suspicious masses, areas of developing architectural distortion, or suspicious calcifications. BI/SCRN MAMM (CAD)W/ELIDA BILAT IMPRESSION: BI-RADS 2: BENIGN. RECOMMEND ANNUAL MAMMOGRAPHIC SCREENING. Follow-up code: Routine Follow-up The patient will be notified of the results by letter. Reading Location: [id number] CC: Dr. Eleonora Edgar DO ~ Patcher: Signed [facility] SCRN MAMM (CAD)W/ELIDA BILATo n 11-11-2024 SCRN MAMM (CAD)W/EILDA BILAT [facility] [address] [place] [address] SCRN MAMM (CAD)W/ELIDA BILAT MR#: [id number] Acct: [id number] Name: BRYAN DESOUZA Rep #: [id number] : 1950 F 74 From: Arian hernandez MD PCP: Dr. Eleonora Edgar DO Status: [facility] Study: SCRN MAMM (CAD)W/ELIDA BILAT Date of Exam: 01/31 Exam# [id number] Ordering Dr: Eleonora Edgar DO PROCEDURE: SCRN MAMM (CAD)W/ELIDA BILAT REASON FOR EXAM: F, Age 74 y/o, no family history. Routine follow-up. TECHNIQUE: Bilateral screening digital breast tomosynthesis with 2D and 3D images. Computer aided detection. COMPARISON: Prior exam(s) dating back to February 27, 2021.. FINDINGS: There are scattered areas of fibroglandular density. Stable bilateral fat containing axillary lymph nodes. No suspicious masses, areas of developing architectural distortion, or suspicious calcifications. BI/SCRN MAMM (CAD)W/ELIDA BILAT IMPRESSION: BI-RADS 2: BENIGN. RECOMMEND ANNUAL MAMMOGRAPHIC SCREENING. Follow-up code: Routine Follow-up The patient will be notified of the results by letter. Reading Location: [id number] CC: Dr. Eleonora Edgar DO Patcher: Signed Normal [facility] Thyroidon 11-11-2024 Thyroid [facility] [address] [place] [address] Thyroid MR#: [id number] Acct: [id number] Name: BRYAN DESOUZA Rep #: [id number] : 1950 F 74 From: [place] MD PCP: Dr. Eleonora Edgar DO Status: REG CLI Study: Thyroid Date of Exam: 11/11/24 Exam# [id number] Ordering Dr: Eleonora Edgar DO PROCEDURE: US THYROID REASON FOR EXAM: Nodules TECHNIQUE: Grayscale and color Doppler imaging of the thyroid was performed. COMPARISON: 02/27/2021. Only the images are available for comparison, the report is not available at the time of dictation. FINDINGS: Right lobe measures 4.9 x 1.5 x 2.1 cm. Essentially homogeneous background echotexture. No abnormal vascularity. Nodules as below: *5 x 6 x 3 mm, mostly cystic, not suspicious. *6 x 6 x 4 mm, solid, partially hypoechoic, TI-RADS 4. Previously 6 x 4 x 6 mm. *Additional smaller tiny cysts/nodules. Left lobe measures 5.1 x 2.0 x 2.0 cm. Essentially homogeneous background echotexture. No abnormal vascularity. Nodules as below: *11 x 8 x 8 mm, mostly solid, isoechoic, TI-RADS 3. Previously 11 x 8 x 10 mm. *9 x 6 x 7 mm, mixed cystic and solid, essentially isoechoic solid components, tie rads 2. Previously 5 x 4 x 5 mm with increase in the degree of cystic components. *Additional smaller tiny cysts/nodules. Isthmus measures 2 mm in thickness. US/Thyroid IMPRESSION: 1. Assessment is TI-RADS 4. No nodules currently meet criteria for FNA or follow-up. 2. Normal size gland with essentially unremarkable background echotexture. No abnormal vascularity. Reading Location: [id number] CC: Dr. Eleonora Edgar, Patcher: Signed Normal [facility] CBC W/Diff, Automatedon 09-2 Absolute Neut Normal 2.0-7.7 [facility] Comment on above: Result Comment: This specimen has been REJECTED due to Laboratory criteria: Clotted. CLEOPATRA MEYER has been notified of need of recollection. 06/05/24 1521 Olga Lollo Performed By: #### L 500.4100, L506.0400, L501.85204, L501.9520, L506.1000, L503.0105, L500.4050, L100.0100 #### [facility] [address] [place], [place], [id number] (552) HCT Normal 37-47 [facility] Comment on above: Result Comment: This specimen has been REJECTED due to Laboratory criteria: Clotted. CLEOPATRA MEYER has been notified of need of recollection. 06/05/24 1521 Olga Lollo Performed By: #### L 500.4100, L506.0400, L501.30805, L501.9520, L506.1000, L503.0105, L500.4050, L100.0100 #### [facility] [address] [place], [place], [phone] ([phone]) HGB Normal 12.0-15.0 [facility] Comment on above: Result Comment: This specimen has been REJECTED due to Laboratory criteria: Clotted. CLEOPATRA MEYER has been notified of need of recollection. 06/05/24 1521 Olga Lollo Performed By: #### L 500.4100, L506.0400, L501.19388, L501.9520, L506.1000, L503.0105, L500.4050, L100.0100 #### [facility] [address] [place], [place], [id number] (631) MCH Normal 27.0-32.0 [facility] Comment on above: Result Comment: This specimen has been REJECTED due to Laboratory criteria: Clotted. CLEOPATRA ANGLE has been notified of need of recollection. 06/05/24 1521 Olga Lollo Performed By: #### L 500.4100, L506.0400, L501.16144, L501.9520, L506.1000, L503.0105, L500.4050, L100.0100 #### [facility] [address] [place], [address] [facility] Normal 32-36 [facility] Comment on above: Result Comment: This specimen has been REJECTED due to Laboratory criteria: Clotted. CLEOPATRA ANGLE has been notified of need of recollection. 06/05/24 1521 Olga Lollo Performed By: #### L 500.4100, L506.0400, L501.38277, L501.9520, L506.1000, L503.0105, L500.4050, L100.0100 #### [facility] [address] [place], [address] MCV Normal 81-99 [facility] Comment on above: Result Comment: This specimen has been REJECTED due to Laboratory criteria: Clotted. CLEOPATRA MEYER has been notified of need of recollection. 06/05/24 1521 Olga Lollo Performed By: #### L 500.4100, L506.0400, L501.27683, L501.9520, L506.1000, L503.0105, L500.4050, L100.0100 #### [facility] [address] [place], [address] NEUT% Normal 47-70 [facility] Comment on above: Result Comment: This specimen has been REJECTED due to Laboratory criteria: Clotted. CLEOPATRA MEYER has been notified of need of recollection. 06/05/24 1521 Olga Lollo Performed By: #### L 500.4100, L506.0400, L501.06090, L501.9520, L506.1000, L503.0105, L500.4050, L100.0100 #### [facility] [address] [place], [address] PLT Normal 150-450 [facility] Comment on above: Result Comment: This specimen has been REJECTED due to Laboratory criteria: Clotted. CLEOPATRA ANGLE has been notified of need of recollection. 06/05/24 1521 Olga Lollo Performed By: #### L 500.4100, L506.0400, L501.51768, L501.9520, L506.1000, L503.0105, L500.4050, L100.0100 #### [facility] [address] [place], [address] RBC Normal 4.2-5.4 [facility] Comment on above: Result Comment: This specimen has been REJECTED due to Laboratory criteria: Clotted. CLEOPATRA ANGLE has been notified of need of recollection. 06/05/24 1521 Olga Lollo Performed By: #### L 500.4100, L506.0400, L501.45334, L501.9520, L506.1000, L503.0105, L500.4050, L100.0100 #### [facility] [address] [place], [address] RDW CV Normal 11.6-14.6 [facility] Comment on above: Result Comment: This specimen has been REJECTED due to Laboratory criteria: Clotted. CLEOPATRA ANGLE has been notified of need of recollection. 06/05/24 1521 Olga Lollo Performed By: #### L 500.4100, L506.0400, L501.09023, L501.9520, L506.1000, L503.0105, L500.4050, L100.0100 #### [facility] [address] [place], [address] RDW SD Normal 35.1-43.9 [facility] Comment on above: Result Comment: This specimen has been REJECTED due to Laboratory criteria: Clotted. CLEOPATRA MEYER has been notified of need of recollection. 06/05/24 1521 Olga Lollo Performed By: #### L 500.4100, L506.0400, L501.32039, L501.9520, L506.1000, L503.0105, L500.4050, L100.0100 #### [facility] [address] [place], [address] WBC Normal 4.4-11.0 [facility] Comment on above: Result Comment: This specimen has been REJECTED due to Laboratory criteria: Clotted. CLEOPATRA MEYER has been notified of need of recollection. 06/05/24 1521 Olga Lollo Performed By: #### L 500.4100, L506.0400, L501.67532, L501.9520, L506.1000, L503.0105, L500.4050, L100.0100 #### [facility] [address] [place], [address] Comprehensive Metabolic Prof [facility] 06-05-2024 Albumin [Mass/Vol] 3.8 g/dL Normal 3.2-5.0 [facility] Comment on above: Performed By: #### L 500.4100, L506.0400, L501.98629, L501.9520, L506.1000, L503.0105, L500.4050, L100.0100 #### [facility] [address] [place], [address] Albumin/Globulin [Mass ratio] 1.3 {ratio} Normal 0.9-2.4 [facility] Comment on above: Performed By: #### L 500.4100, L506.0400, L501.77970, L501.9520, L506.1000, L503.0105, L500.4050, L100.0100 #### [facility] [address] [place], [address] ALK P 58 U/L Normal 45-117 [facility] Comment on above: Performed By: #### L 500.4100, L506.0400, L501.84634, L501.9520, L506.1000, L503.0105, L500.4050, L100.0100 #### [facility] [address] [place], [address] ALT [Catalytic activity/Vol] 21 U/L Normal 13-56 [facility] Comment on above: Performed By: #### L 500.4100, L506.0400, L501.99813, L501.9520, L506.1000, L503.0105, L500.4050, L100.0100 #### [facility] [address] [place], [address] AST [Catalytic activity/Vol] 16 U/L Normal 15-37 [facility] Comment on above: Result Comment: Slig ht Hemolysis, Result may be falsely increased. Performed By: #### L 500.4100, L506.0400, L501.50677, L501.9520, L506.1000, L503.0105, L500.4050, L100.0100 #### [facility] [address] [place], [address] Bilirubin [Mass/Vol] 0.50 mg/dL Normal 0.20-1.00 [facility] Comment on above: Result Comment: For patients on eltrombopag therapy, use of Dimension [place] TBIL is not recommended. Performed By: #### L 500.4100, L506.0400, L501.31053, L501.9520, L506.1000, L503.0105, L500.4050, L100.0100 #### [facility] [address] [place], [address] BUN/CRE 25.7 RATIO High 10-20 [facility] Comment on above: Performed By: #### L 500.4100, L506.0400, L501.00119, L501.9520, L506.1000, L503.0105, L500.4050, L100.0100 #### [facility] [address] [place], [address] CA,Total 9.6 mg/dL Normal 8.5-10.1 [facility] Comment on above: Performed By: #### L 500.4100, L506.0400, L501.77669, L501.9520, L506.1000, L503.0105, L500.4050, L100.0100 #### [facility] [address] [place], [address] Chloride [Moles/Vol] 102 mmol/L Normal 98-107 [facility] Comment on above: Performed By: #### L 500.4100, L506.0400, L501.05009, L501.9520, L506.1000, L503.0105, L500.4050, L100.0100 #### [facility] [address] [place], [address] CO2 [Moles/Vol] 25.0 mmol/L Normal 21.0-32.0 [facility] Comment on above: Performed By: #### L 500.4100, L506.0400, L501.99889, L501.9520, L506.1000, L503.0105, L500.4050, L100.0100 #### [facility] [address] [place], [address] Creatinine [Mass/Vol] 1.01 mg/dL Normal 0.55-1.02 [facility] Comment on above: Result Comment: The validity of the calculated GFR GFRAA in patients over 70 years has not been determined. Clinical correlation is essential. Performed By: #### L 500.4100, L506.0400, L501.24098, L501.9520, L506.1000, L503.0105, L500.4050, L100.0100 #### [facility] [address] [place], [address] EST GFR - AA 69 mL/min Normal >60 [facility] Comment on above: Result Comment: Afri can [place] GFR Calc Performed By: #### L 500.4100, L506.0400, L501.83397, L501.9520, L506.1000, L503.0105, L500.4050, L100.0100 #### [facility] [address] [place], [address] GAP 7 Normal 5-15 [facility] Comment on above: Performed By: #### L 500.4100, L506.0400, L501.51476, L501.9520, L506.1000, L503.0105, L500.4050, L100.0100 #### [facility] [address] [place], [address] GFR/1.73 sq M.predicted among non-blacks MDRD (S/P/Bld) [Vol rate/Area] 57 mL/min/{1.73_m2} Low >60 [facility] Comment on above: Result Comment: Non- GFR Calc Performed By: #### L 500.4100, L506.0400, L501.64924, L501.9520, L506.1000, L503.0105, L500.4050, L100.0100 #### [facility] [address] [place], [address] Globulin (S) [Mass/Vol] 3.0 g/dL Normal 2.2-4.2 [facility] Comment on above: Performed By: #### L 500.4100, L506.0400, L501.62110, L501.9520, L506.1000, L503.0105, L500.4050, L100.0100 #### [facility] [address] [place], [address] Glucose [Mass/Vol] 105 mg/dL Normal 74-106 [facility] Comment on above: Result Comment: Fast ing Glucose result from 100 to 125 mg/dL suggests IMPAIRED HOMEOSTASIS per A.D.A. criteria. Performed By: #### L 500.4100, L506.0400, L501.00638, L501.9520, L506.1000, L503.0105, L500.4050, L100.0100 #### [facility] [address] [place], [address] Potassium [Moles/Vol] 5.0 mmol/L Normal 3.5-5.1 [facility] Comment on above: Result Comment: Slig ht Hemolysis, Result may be falsely increased. Performed By: #### L 500.4100, L506.0400, L501.50411, L501.9520, L506.1000, L503.0105, L500.4050, L100.0100 #### [facility] [address] [place], [address] Sodium [Moles/Vol] 134 mmol/L Low 136-145 [facility] Comment on above: Performed By: #### L 500.4100, L506.0400, L501.72220, L501.9520, L506.1000, L503.0105, L500.4050, L100.0100 #### [facility] [address] [place], [address] T PROT 6.8 g/dL Normal 6.4-8.2 [facility] Comment on above: Performed By: #### L 500.4100, L506.0400, L501.69413, L501.9520, L506.1000, L503.0105, L500.4050, L100.0100 #### [facility] [address] [place], [address] Urea nitrogen [Mass/Vol] 26 mg/dL High 7-18 [facility] Comment on above: Performed By: #### L 500.4100, L506.0400, L501.75631, L501.9520, L506.1000, L503.0105, L500.4050, L100.0100 #### [facility] [address] [place], [address] Free T3on 06-05-2024 Free T3 [Mass/Vol] 2.4 pg/mL Normal 2.18-3.98 [facility] Comment on above: Performed By: #### L 500.4100, L506.0400, L501.80865, L501.9520, L506.1000, L503.0105, L500.4050, L100.0100 #### [facility] [address] [place], [address] Lipid Profileon 06-05-2024 Cholesterol [Mass/Vol] 165 mg/dL Normal 200 [facility] Comment on above: Result Comment: <200 mg/dL Desirable 200-240 mg/dL Borderline >240 mg/dL High Risk Performed By: #### L 500.4100, L506.0400, L501.77444, L501.9520, L506.1000, L503.0105, L500.4050, L100.0100 #### [facility] [address] [place], [address] Cholesterol in HDL [Mass/Vol] 78 mg/dL Normal [facility] Comment on above: Result Comment: The drugs N-Acetylcysteine and Metamizole may falsely depress this assay. Reference Range HDL <40 mg/dL Low HDL Cholesterol HDL >or= 60 mg/dL High HDL Cholesterol Performed By: #### L 500.4100, L506.0400, L501.62056, L501.9520, L506.1000, L503.0105, L500.4050, L100.0100 #### [facility] [address] [place], [address] Cholesterol in LDL [Mass/Vol] 76 mg/dL Normal 0-130 [facility] Comment on above: Performed By: #### L 500.4100, L506.0400, L501.05112, L501.9520, L506.1000, L503.0105, L500.4050, L100.0100 #### [facility] [address] [place], [address] Cholesterol in VLDL [Mass/Vol] 11 mg/dL Normal 5-40 [facility] Comment on above: Performed By: #### L 500.4100, L506.0400, L501.84656, L501.9520, L506.1000, L503.0105, L500.4050, L100.0100 #### [facility] [address] [place], [address] Triglyceride [Mass/Vol] 56 mg/dL Normal [facility] Comment on above: Result Comment: The drugs N-Acetylcysteine and Metamizole may falsely depress this assay. Serum Triglycerides Reference Interval Normal <150 mg/dL Borderline high 150 - 199 mg/dL High 200 - 499 mg/dL Very High > or = 500 mg/dL Performed By: #### L 500.4100, L506.0400, L501.62418, L501.9520, L506.1000, L503.0105, L500.4050, L100.0100 #### [facility] [address] [place], [address] T4 Free Directon 06-05-2024 T4 FREE DIRECT 1.13 ng/dL Normal 0.76-1.46 [facility] Comment on above: Performed By: #### L 500.4100, L506.0400, L501.95342, L501.9520, L506.1000, L503.0105, L500.4050, L100.0100 #### [facility] [address] [place], [address] Thyroid Stim Hormone (TSH)on 06-05-2024 TSH 1.030 uIU/mL Normal 0.358-3.740 [facility] Comment on above: Performed By: #### L 500.4100, L506.0400, L501.66512, L501.9520, L506.1000, L503.0105, L500.4050, L100.0100 #### [facility] [address] [place], [address] Vitamin B12on 06-05-2024 Cobalamin (Vitamin B12) [Mass/Vol] 539 pg/mL Normal 211-911 [facility] Comment on above: Performed By: #### L 500.4100, L506.0400, L501.61764, L501.9520, L506.1000, L503.0105, L500.4050, L100.0100 #### [facility] [address] [place], [place], [id number] Vitamin D,25 Hydroxyon 06-05 Vitamin D 25-OH 74.0 ng/mL Normal [facility] Comment on above: Result Comment: [place] min D 25(OH) Status Range Deficiency <20 ng/mL (50nmol/L) Insufficiency 20 - 30 ng/mL (50 - 75 nmol/L) Sufficiency 30 - 100 ng/mL (75 - 250 nmol/L) Toxicity >100 ng/mL (>250 nmol/L) Performed By: #### L 500.4100, L506.0400, L501.48243, L501.9520, L506.1000, L503.0105, L500.4050, L100.0100 #### [facility] [address] [place], [place], [address] Basophil percentageon 2021 Basophil percentage < 0.9 mg/dL 0.55-1.02 [facility] Work Phone: No Panel Informationon 05-24 Bedside Estimated GFR (eGFR) > 60.0000 mL/min >60 [facility] Work Phone: Vital Signs Date Time Vital Sign Value Performing Clinician Inocencio odell 05-17-2022 14:06-0400 Body height 167.[address] Eleonora Edgar Work Phone: [facility] Work Phone: 05-17-2022 14:06-0400 Body mass index (BMI) [Ratio] 26.8 kg/m2 Dr. Eleonora Edgar Work Phone: [facility] Work Phone: 05-17-2022 14:06-0400 Body weight 75.[address] Eleonora Edgar Work Phone: [facility] Work Phone: 05-17-2022 14:06-0400 Diastolic blood pressure 81 mm[Hg] Dr. Eleonora Edgar Work Phone: [facility] Work Phone: 05-17-2022 14:06-0400 Heart rate 68 /min Dr. Eleonora Edgar Work Phone: [facility] Work Phone: 05-17-2022 14:06-0400 Respiratory rate 18 /min Dr. Eleonora Edgar Work Phone: [facility] Work Phone: 05-17-2022 14:06-0400 SaO2% (BldA) [Mass fraction] 98 % Dr. Eleonora Edgar Work Phone: [facility] Work Phone: 05-17-2022 14:06-0400 Systolic blood pressure 127 mm[Hg] Dr. Eleonora Edgar Work Phone: [facility] Work Phone: Encounters Encounter Date Encounter Type Care Provider Facility Start: 12-25-2024 Non-patient / Non-visit Dr. Tommy [facility] Start: 12-25-2024 End: 12-25-[address] Eleonora Edgar DO Work Phone: [facility] Work Phone: Start: 12-25-2024 End: 12-25-[address] Eleonora Edgar DO -Cardiovascular Services Work Phone: Start: 12-25-2024 End: 12-25-2024 ambulatory Eleonora Edgar Facility:[facility] Start: 11-19-2024 End: 11-19-[address] Eleonora Edgar DO Work Phone: [facility] Work Phone: Start: 11-19-2024 End: 11-19-[address] Eleonora Edgar DO -Cat Scan, [facility] Work Phone: Start: 11-19-2024 End: 11-19-2024 ambulatory Eleonora Edgar Facility:[facility] Start: 11-11-2024 End: 11-11-[address] Eleonora Edgar DO Work Phone: [facility] Work Phone: Start: 11-11-2024 End: 11-11-[address] Eleonora Edgar DO -Outpatient Breast Imaging Work Phone: Start: 11-11-2024 End: 11-11-2024 ambulatory Eleonora Edgar Facility:[facility] Start: 06-05-2024 End: 06-05-2024 ambulatory Eleonora Edgar Facility:[facility] Start: 07-10-2022 Non-patient / Non-visit Dr. Savannah Edgar Work Phone: [facility] Start: 07-10-2022 End: 07-10-[address] Eleonora Edgar Work Phone: [facility] Work Phone: Start: 07-10-2022 End: 07-10-[address] Eleonora Edgar Work Phone: [facility]iov[facility] Start: 05-24-2022 End: 05-24-[address] Eleonora Edgar Work Phone: [facility] Work Phone: Start: 05-24-2022 End: 05-24-[address] Eleonora Edgar Work Phone: [facility]-Cat Scan, [facility] Start: 05-17-2022 End: 05-17-[address] Eleonora Edgar Work Phone: [facility] Procedures Date Procedure Procedure Detail Performing Clinician Start: 11-19-2024 CT angiography of ch est with contrast Dr. Eleonora Edgar DO Work Phone: Start: 11-11-2024 Screening mammography D flavia Edgar DO Work Phone: Start: 11-11-2024 US scan of thyroid Dr. Eleonora Edgar DO Work Phone: Start: 05-24-2022 CT angiography of ch est with contrast Dr. Eleonora Edgar Work Phone: Plan of Treatment Date Care Activity Detail Author [facility] Work Phone: Payers Date Payer Category Payer Self-pay [id number] 2024 Medicare [id number] 2024 Self-pay [id number] 2013 [employer] ( and others) [employer] [id number] 2013 [employer] ( and others) [id number] Unknown [id number] 62 Unknown [id number] 62 Unknown [id number] 62 Unknown [id number] 62 Unknown [id number] 62 Social History Date Type Detail Facility Start: 05-17-2022 End: 05-17-2022 Tobacco smoking status NHIS Unknown if ever smoked [facility] Work Phone: Start: 1950 Sex Assigned At Female [facility] Start: 05-17-2022 Tobacco smoking stat us NHIS Never smoked tobacco (finding) [facility] Start: 11-24-2024 End: 12-29-2024 Sex Female (finding) [facility] Radiology Diagnostic study note 11-19-2024 Note Date & Type Note Facility 11-19-2024 Radiology Diagnostic study note [facility] Imaging Services [address] [place] [address] [id number] CTA Chest W/WO Contrast MR#: [id number] Acct: [id number] Name: BRYAN DESOUZA Rep #: [id number] : 1950 F 74 From: Pillo Hussein MD PCP: Dr. Eleonora Edgar DO Status: REG CLI Study:CTA Chest W/WO Contrast Date of Exam: 11/19/24 Exam# [id number] Ordering Dr: Savannah Edgar sa, DO PROCEDURE: CTA CHEST W/WO CONTRAST REASON FOR EXAM: DILATED AORTIC ROOT TECHNIQUE: CTA imaging of the chest with intravenous contrast. 3D reconstructions. CONTRAST: 100 mL of Isovue 370. COMPARISON: Comparison is made with prior study dated May 24, 2022. FINDINGS: Stable 7.5 mm hypodense nodule in the left lobe of the thyroid. Lymph nodes: No mediastinal hilar or axillary lymphadenopathy. Heart: Normal heart size. No pericardial effusion. RV/LV Diameter Ratio: N/A Thoracic Aorta: There is dilatation at the root of the ascending thoracic aorta with a transverse dimension of 44 mm. No evidence of dissection. Pulmonary Vessels: No evidence of acute pulmonary emboli through the major subsegmental branches. Most Proximal Level of Embolus (if embolus present): N/A Lungs and Airways: Mild increased linear markings in the anterior aspect of the left lower lobe abutting the left major fissure suggestive of scarring. Pleura: No pleural effusion. No pneumothorax. Upper Abdomen: Fatty infiltration of the liver. Bones: Degenerative changes of the thoracic spine. CT/CTA Chest W/WO Contrast IMPRESSION: There is dilatation of the ascending thoracic aorta measuring 44 mm in transverse dimension. The remainder of the examination is unchanged. One or more dose reduction techniques were used (e.g., Automated exposure control, adjustment of the mA and/or kV according to patient size, use of iterative reconstruction technique). Reading Location: [id number] CC: Dr. Eleonora Edgar DO ~ Patcher: Signed [facility] Radiology Diagnostic study note 11-11-2024 Note Date & Type Note Facility 11-11-2024 Radiology Diagnostic study note [facility] Imaging Services [address] [place] [address] [id number] Thyroid MR#: [id number] Acct: [id number] Name: BRYAN DESOUZA Rep #: [id number] : 1950 F 74 From: La Nena Macedo MD PCP: Dr. Eleonora Edgar DO Status: REG CLI Study:Thyroid Date of Exam: 11/11/24 Exam# [id number] Ordering Dr: Savannah Edgar sa, DO PROCEDURE: US THYROID REASON FOR EXAM: Nodules TECHNIQUE: Grayscale and color Doppler imaging of the thyroid was performed. COMPARISON: 02/27/2021. Only the images are available for comparison, the report is not available at the time of dictation. FINDINGS: Right lobe measures 4.9 x 1.5 x 2.1 cm. Essentially homogeneous background echotexture. No abnormal vascularity. Nodules as below: *5 x 6 x 3 mm, mostly cystic, not suspicious. *6 x 6 x 4 mm, solid, partially hypoechoic, TI-RADS 4. Previously 6 x 4 x 6 mm. *Additional smaller tiny cysts/nodules. Left lobe measures 5.1 x 2.0 x 2.0 cm. Essentially homogeneous background echotexture. No abnormal vascularity. Nodules as below: *11 x 8 x 8 mm, mostly solid, isoechoic, TI-RADS 3. Previously 11 x 8 x 10 mm. *9 x 6 x 7 mm, mixed cystic and solid, essentially isoechoic solid components, tie rads 2. Previously 5 x 4 x 5 mm with increase in the degree of cystic components. *Additional smaller tiny cysts/nodules. Isthmus measures 2 mm in thickness. US/Thyroid IMPRESSION: 1. Assessment is TI-RADS 4. No nodules currently meet criteria for FNA or follow-up. 2. Normal size gland with essentially unremarkable background echotexture. No abnormal vascularity. Reading Location: [facility] CC: Dr. Eleonora Edgar, DO ~ Patcher: Signed [facility] Evaluation note Note Date & Type Note Facility Evaluation note Diagnosis Onset Date Essential hypertension acute Nonrheumatic aortic (valve) insufficiency acute Ascending aorta dilatation c hronic Dilated aortic root chronic [facility] Work Phone: Evaluation note Note Date & Type Note Facility Evaluation note No assessment information availa ble [facility] Work Phone: Reason for referral (narrative) Note Date & Type Note Facility Reason for referral (narrative) No reason for referral information available [facility] Work Phone: Chief Complaint and Reason for Visit Chief Complaint 1 Y FU AAA Reason for Visit Essential hypertensi on Nonrheumatic aortic (valve) insufficiency Ascending aorta dilatation Dilated aortic root Chief Complaint 1 Y FU AAA MURMUR Reason for Visit Essential hypertensi on Nonrheumatic aortic (valve) insufficiency Ascending aorta dilatation Dilated aortic root Chief Complaint Admit Date SCREENING November 11, 2024 11:4 5am DILATED AORTIC ROOT November 19, 2024 7:2 6am Chief Complaint Admit Date SCREENING November 11, 2024 11:4 5am DILATED AORTIC ROOT November 19, 2024 7:2 6am CHEST PAIN December 25, 2024 1:1 9pm Family History No Family History Records Found Relationship Condition Age at Onset Recorded Date/T laura father Diabetes mellitus Unknown Hypertension Unknown Coronary artery disease Unknown Chronic obstructive pulmonary disease Unk nown mother Unknown Advance Directives No Advanced Directives Records Found Advance Directive Response Recorded Date/ Time Advance Directives No July 12, 2014 10:08am Living Will No March 30, 2021 8:24am Power of Facility Maintenance Supervisor No March 30 8:24am Advance Directive Response Recorded Date/ Time Advance Directives No July 12, 2014 9:08am Living Will No March 30, 2021 7:24am Power of Facility Maintenance Supervisor No March 30 7:24am Advance Directive Response Recorded Date/ Time Living Will No March 30, 2021 8:24am Power of Facility Maintenance Supervisor No March 30 8:24am Advance Directives No July 12, 2014 10:08am Advance Directive Response Recorded Date/ Time Living Will No March 30, 2021 8:24am Do you have a Healthcare Power of Facility Maintenance Supervisor? No March 30, 2021 8:24am Advance Directives No July 12, 2014 10:08am Summary Purpose Additional Source Comments Goals (unrecognized section and content) Goals may be documented in a n alternate sectionGoals may be documented in an alternate sectionGoals may be documented in an alternate sectionGoals may be documented in an alternate sectionGoals may be documented in an alternate section Care Teams (unrecognized sec tion and content) Team Status: Active Member Role Status Dates Dr. Eleonora Edgar DO Primary Care Provider Active Team Status: Inactive Member Role Status Dates Dr. Eleonora Edgar DO Primary Care Provider Active Start: November 11, 2024 End: November 11, 2024 Dr. Eleonora Edgar DO Attending Provider Active St art: November 11, 2024 End: November 11, 2024 Dr. Eleonora Edgar DO Referring Provider Active St art: November 11, 2024 End: November 11, 2024 Team Status: Active Member Role Status Dates Dr. Eleonora Edgar DO Primary Care Provider Active Start: November 19, 2024 Dr. Eleonora Edgar DO Attending Provider Active St art: November 19, 2024 Dr. Eleonora Edgar DO Referring Provider Active St art: November 19, 2024 Team Status: Inactive Member Role Status Dates Dr. Eleonora Edgar DO Primary Care Provider Active Start: November 19, 2024 End: November 19, 2024 Dr. Eleonora Edgar DO Attending Provider Active St art: November 19, 2024 End: November 19, 2024 Dr. Eleonora Edgar DO Referring Provider Active St art: November 19, 2024 End: November 19, 2024 Team Status: Inactive Member Role Status Dates Dr. Eleonora Edgar DO Primary Care Provider Active Start: December 25, 2024 End: December 25, 2024 Dr. Eleonora Edgar DO Attending Provider Active St art: December 25, 2024 End: December 25, 2024 Dr. Eleonora Edgar DO Referring Provider Active St art: December 25, 2024 End: December 25, 2024 Team Status: Active Member Role Status Dates Dr. Eleonora Edgar DO Primary Care Provider Active Start: December 25, 2024 Dr. Micky Chaudhry MD Attending Provider Active S tart: December 25, 2024 INFORMATION SOURCE (unrecogn ized section and content) DATE CREATED AUTHOR 12/30/2024 [facility] FOR RECORDS PERTAINING TO PATIENTS WHO ARE OR HAVE BEEN ENROLLED IN A CHEMICAL DEPENDENCY/SUBSTANCEABUSE PROGRAM, SOME INFORMATION MAY BE OMITTED. This clinical summary was aggregated from multiple sources. Caution should be exercised in using it in the provision of clinical care. This summary normalizes information from multiple sources, and as a consequence, information in this document may materially change the coding, format and clinical context of patient data. In addition, data may be omitted in some cases. CLINICAL DECISIONS SHOULD BE BASED ON THE PRIMARY CLINICAL RECORDS. [employer] provides no warranty or guarantee of the accuracy or completeness of information in this document.
== END | disposition home or self-care (01) ==
LOC: BFHLAB 14:33
PROVIDERS: PCP Family Medicine; Visit Provider Family Medicine
DX: E03.9 Hypothyroidism, unspecified (principal); E53.8 Deficiency of other specified B group vitamins; E55.9 Vitamin D deficiency, unspecified; I10 Essential (primary) hypertension; Z51.81 Encounter for therapeutic drug level monitoring
CPT/HCPCS: 36415; 80053; 80061; 82306; 82607; 84439; 84443; 84481; 85025

== ENCOUNTER → 2025-05-21 | Outpatient (CLI) | payer MEDICARE, OTHER, SELFPAY ==
--- NOTE | 2025-05-21 14:26 | RAD_ITS ---
PROCEDURE: KNEE 4 OR MORE VIEWS 05/21/2025 REASON FOR EXAM: PAIN TECHNIQUE: Procedure Code: RADKN Modality: DX Procedure: KNEE 4 OR MORE VIEWS Laterality: Right COMPARISON: None FINDINGS: LEFT KNEE: There is no evidence of fracture or dislocation. There is mild arthritis of the patellofemoral joint. There is mild arthritis of the medial joint space compartment of the knee. There is no arthritis of the lateral joint space compartment of the knee. There is no knee joint effusion. The periarticular soft tissues are normal. RAD/Knee 4 or More Views IMPRESSION: Mild arthritis without knee joint effusion. Reading Location: [place] [id number]
--- NOTE | 2025-05-21 14:26 | RAD_ITS ---
PROCEDURE: KNEE 4 OR MORE VIEWS 05/21/2025 REASON FOR EXAM: PAIN TECHNIQUE: Procedure Code: RADKN Modality: DX Procedure: KNEE 4 OR MORE VIEWS Laterality: Right COMPARISON: None FINDINGS: RIGHT KNEE: There is no evidence of fracture or dislocation. There is mild arthritis of the patellofemoral joint. There is mild arthritis of the medial joint space compartment of the knee. There is no arthritis of the lateral joint space compartment of the knee. There is no knee joint effusion. The periarticular soft tissues are normal. RAD/Knee 4 or More Views IMPRESSION: Mild arthritis without knee joint effusion. Reading Location: [place] [id number]
== END | disposition home or self-care (01) ==
LOC: MTRAD 14:26
PROVIDERS: PCP Family Medicine; Referring Provider Nurse Practitioner Family; Visit Provider Nurse Practitioner Family
DX: M25.561 Pain in right knee (principal); M25.562 Pain in left knee; Z91.81 History of falling
CPT/HCPCS: 73564

== ENCOUNTER → 2025-07-21 | Outpatient (CLI) | payer MEDICARE, OTHER, SELFPAY ==
--- NOTE | 2025-07-21 10:58 | BD_ITS ---
PROCEDURE: DEXA BONE DENSITY STUDY 07/21/2025 REASON FOR EXAM: F, age 75 y/o . Postmenopausal. TECHNIQUE: Procedure Code: BDDBD Modality: DX Procedure: DEXA BONE DENSITY STUDY COMPARISON: June 29, 2014 FINDINGS: BMD and T-SCORES Lumbar spine: 1.080 g/cm2, T-score 2.9 Levels: L1 through L4 Change from prior: Improvement of 6.3%. Left femoral neck: 0.655 g/cm2, T-score -1.7 Femoral neck comparison data not recommended for monitoring change. Left total hip: 0.803 g/cm2, T-score -1.1 Change from prior: Loss of 3.9%. Right femoral neck: 0.758 g/cm2, T-score -0.8 Femoral neck comparison data not recommended for monitoring change. Right total hip: 0.887 g/cm2, T-score -0.4 Change from prior: Loss of 4.5%. The World Health Organization has defined the following categories based on bone density: Normal bone density: T-score equal to or greater than -1.0 Osteopenia: T-score between -1.0 and -2.5 Osteoporosis: T-score equal to or less than -2.5 FRAX (or Comparable) Fracture Risk Assessment: 10 Year Probability of Fracture: Major Osteoporotic Fracture: 12th% Hip Fracture: 2.5% (Note: FRAX is not to be reported in setting of normal range bone density, osteoporosis on DEXA, known history of osteoporosis, prior osteoporotic hip or vertebral fracture, or for any patient undergoing pharmacological treatment for bone loss.) The National Osteoporosis Foundation (NOF) recommends pharmacological treatment for patients with a FRAX 10-year risk of 3% or higher for a hip fracture, or 20% or higher for a major osteoporotic fracture, to prevent osteoporosis and reduce fracture risk. The patient does meet the pharmacological treatment recommendations for prevention of osteoporosis. BD/Dexa Bone Density Study IMPRESSION: OSTEOPENIA. Recommend follow-up as clinically warranted. Reading Location: [place] [id number]
== END | disposition home or self-care (01) ==
LOC: OPBD 10:51
PROVIDERS: PCP Family Medicine; Referring Provider Family Medicine; Visit Provider Family Medicine
DX: M81.0 Age-related osteoporosis without current pathological fracture (principal)
CPT/HCPCS: 77080